=== PATIENT | female | born 1975 | race Caucasian/White ===

== ENCOUNTER 2018-05-12 10:54 | Day surgery (SDC) | payer BC ==
--- NOTE | 2018-05-12 10:08 | HP ---
DATE OF SURGERY: 05/12/2018 ANTICIPATED PROCEDURE: Hemorrhoidectomy. HISTORY OF PRESENT ILLNESS: The patient has symptomatic external hemorrhoids. PAST MEDICAL HISTORY: ALLERGIES: NONE. MEDICATIONS: Norvasc. PAST SURGICAL HISTORY: Knee surgery. section. Cerclage. Two hernias. SOCIAL HISTORY: Negative. FAMILY HISTORY: Negative. REVIEW OF SYSTEMS: CVS: Controlled hypertension. Pulmonary: Negative. GI: Negative. : Negative. PHYSICAL EXAMINATION: VITAL SIGNS: Normal. CHEST: Clear. COR: Regular. IMPRESSION: Anus large hemorrhoids. PLAN: External hemorrhoidectomy.
[~2018-05-12 10:54] MED LIST: Lactated Ringers 1,000 ML IV ONE; Lactated Ringers 1,000 ML IV SCH; MEFOXIN 2 GM PREMIX** 2 GM/50 ML ML IV ONE; Sensorcaine 0.25% 10 ML ONE
[2018-05-12] MEDS ORDERED: Quelicin Fliptop 200 MG/10 ML IV ONE (10:55)
[2018-05-12] MEDS ORDERED: SUBLIMAZE 100 MCG/2 ML IV ONE (10:55)
[2018-05-12] MEDS ORDERED: DIPRIVAN 200 MG/20 ML IV ONE (10:55)
[2018-05-12] MEDS ORDERED: ROBINUL IV ONE (10:55)
[2018-05-12] MEDS ORDERED: SUBLIMAZE 250 MCG/5 ML IV ONE (10:55)
[2018-05-12] MEDS ORDERED: EXPAREL 266 MG/20 ML VIAL IJ ONE (10:55)
[2018-05-12] MEDS ORDERED: Versed 2 MG/2 ML Injection ONE (11:26)
[2018-05-12] MEDS ORDERED: Versed 2 MG/2 ML Injection IV ONE (11:28)
[2018-05-12] MEDS ORDERED: ANUSOL-HC 2.5% CREAM 30 GM ONE (12:48)
[2018-05-12 15:26] VITALS: BP 118/60; PULSE 95; O2SAT 93
--- NOTE | 2018-05-13 11:07 | OP ---
SURGERY DATE/TIME: 05/12/2018 1206 PREOPERATIVE DIAGNOSIS: Hemorrhoids. POSTOPERATIVE DIAGNOSIS: One massive external hemorrhoid, two smaller hemorrhoids. PROCEDURE: Hemorrhoidectomy x3 external. SURGEON: Joss Beaver M.D. ANESTHESIA: General. INDICATION: The patient has massive external hemorrhoid and some smaller hemorrhoids. DESCRIPTION OF PROCEDURE: She was taken to surgery. General anesthetic. Routine prep and drape. Total of three external hemorrhoids were taken, were clamped. The mucosa was clamped, amputated closed with running suture #2-0 chromic catgut. Hemostasis satisfactory. Aperture satisfactory. The patient tolerated the procedure satisfactorily.
== END 2018-05-12 14:50 | disposition home or self-care (01) ==
LOC: SDC 10:54
PROVIDERS: ATTEND Surgery
DX: K64.4 Residual hemorrhoidal skin tags (principal); I10 Essential (primary) hypertension
CPT/HCPCS: 84703; 94250; J0330; J0694; J2250; J2704; J3010; A9270-GY

== ENCOUNTER 2020-05-04 22:54 | Inpatient (IN) | payer BC ==
[2020-05-04] MEDS ORDERED: MORPHINE SULFATE 4 MG INJ IV ONE (23:35)
[2020-05-04 23:37] LABS: Absolute Neutrophil Ct (ANC) 11.83 (1.4-6.9); BASOPHIL % 0.2 % (0.0-0.4); Basophil (Absolute #) 0.03 (0-0.4); Eosinophil % 2.1 % (0.00-5.0); Eosinophil (Absolute #) 0.32 (0-0.5); Hematocrit 51.1 % (35-47); Hemoglobin 17.2 gm/dl (12.0-16.0); Lymphocytes % 13.4 % (24.0-44.0); Mean Cell Volume 95.3 fl (78-100); Mean Corpuscular Hemoglobin 32.1 pg (26-32); Mean Corpuscular Hgb Concent. 33.7 g/dl (32-36); Mean Platelet Volume 9.2 fl (7.5-11.0); Monocyte (Absolute #) 0.74 (0.0-1.3); Neutrophil % 79.3 % (36.0-66.0); Platelet Count 289 K/mm3 (150-450); Red Blood Count 5.36 M/mm3 (4.1-5.4); Red Cell Distribution Width 14.9 % (11.5-14.0); White Blood Count 14.9 K/mm3 (4.0-10.5)
[2020-05-04] MEDS ORDERED: Sodium Chloride 0.9% 1000 ML 1,000 ML IV STA (23:37)
[2020-05-04] MEDS ORDERED: Zofran 4 MG/2 ML VIAL IV ONE (23:37)
[2020-05-04] MEDS ORDERED: Zofran 4 MG/2 ML VIAL ONE (23:39)
[2020-05-04] MEDS ORDERED: MORPHINE SULFATE 4 MG INJ ONE (23:39)
[2020-05-04] MEDS ORDERED: Sodium Chloride 0.9% 1000 ML 1,000 ML ONE (23:39)
[2020-05-04 23:42] LABS: ALBUMIN 4.4 g/dL (3.5-5.0); ALKALINE PHOSPHATASE 86 U/L (38-126); ANION GAP 9.9 MEQ/L (5-15); BLOOD UREA NITROGEN 4 mg/dL (7-17); CHLORIDE 102 mmol/L (98-107); Calcium 9.4 mg/dL (8.4-10.2); Carbon Dioxide 28 mmol/L (22-30); Creatinine 1 0.54 mg/dL (0.52-1.04); EST GLOMERULAR FILTRATION RATE > 60.0 ML/MIN; Glucose 149 mg/dL (74-106); Potassium 3.5 mmol/L (3.5-5.1); SGOT/AST 21 U/L (14-36); SGPT/ALT 22 U/L (0-35); SODIUM 137 mmol/L (137-145); Total Protein 8.4 g/dL (6.3-8.2)
[2020-05-05] LABS: Appearance SLIGHTLY CLOUDY (CLEAR); Bilirubin NEGATIVE (NEGATIVE); Blood SMALL Ery/ul (0-5); Epithelial Cells RARE /HPF (FEW); Glucose NEGATIVE (NEGATIVE); Ketones NEGATIVE (NEGATIVE); Leukocyte Esterase NEGATIVE (NEGATIVE); Mucus SLIGHT /HPF (NEGATIVE); Nitrite NEGATIVE (NEGATIVE); Protein,Urine Dip 100 (Negative); Specific Gravity 1.013 (1.005-1.025); Urobilinogen NEGATIVE mg/dL (0-1)
--- NOTE | 2020-05-05 00:04 | ERPHSYRPT ---
- History of Present Illness Time Seen by Provider: 05/04/20 23:03 Historian: patient Exam Limitations: no limitations Patient Subjective Stated Complaint: pt states that today at noon she began to have belly pain, pt states that she had a small amout of diarrhea and vomited once, pt states that her belly is cramping, pt states that her blood pressure is also elevated and that she is having hot flashes Triage Nursing Assessment: pt came into the er via wheelchair, pt is axo x4, c/o abd pain and hypertension, states 10/10 pain to upper abd, abd is soft, obese, tender to midline upper abd with palpation, hypoactive bowel sounds in all quads, N/V/D, pt holding abd and yelling out in pain, hypertensive 206/124, denies chest pain, clear lung sounds in all lobes, clear heart tones Physician History: 44 years old female with history of hypertension presented in the ER with chief complaint of epigastric and right upper quadrant pain sudden onset around noon with progressively worsening currently having 10/10 intensity, sharp in nature, without any significant aggravating or relieving factors, associated with nausea and one episode of nonprojectile, nonbilious vomiting without hematemesis. Denies any history of similar pain in the past. Denies fever chills cough. No diarrhea or constipation. Patient blood pressure is in 200s on presentation which she reports she has whitecoat hypertension but denies any chest pain palpitations or shortness of breath. Timing/Duration: today, gradual onset, worse Activities at Onset: rest Quality: sharpness Abdominal Pain Onset Location: RUQ, epigastric Pain Radiation: no radiation Severity of Pain-Max: severe Severity of Pain-Current: severe Modifying Factors: Improves With: nothing Associated Symptoms: nausea, vomiting Previous symptoms: no prior history Allergies/Adverse Reactions: fluoxetine HCl [From Prozac] Allergy (Intermediate, Verified 05/04/20 23:03) Hives hives Home Medications: Alprazolam 1 mg [Xanax 1 mg] 0.5 mg PO BID 08/14/14 [History] Amlodipine Besylate 10 mg [Norvasc 10 MG] 10 mg PO DAILY 11/02/17 [History] Paroxetine HCl 20 mg [Paxil 20 MG] 20 mg PO DAILY 11/02/17 [History] Carvedilol 3.125 mg [Coreg 3.125 MG] 3.125 mg PO DAILY 05/05/20 [History] Ergocalciferol (Vitamin D2) [Vitamin D2] 1 cap PO WEEKLY 05/05/20 [History] Ergocalciferol (Vitamin D2) [Vitamin D] 1 cap PO WEEKLY 05/05/20 [History] Naloxone HCl [Narcan] 1 spray .ROUTE PRN 05/05/20 [History] Semaglutide [Ozempic] 2 ml SQ WEEKLY 05/05/20 [History] Tramadol HCl 50 mg [Ultram 50 mg] 50 mg PO Q4HPRN PRN 05/05/20 [History] Hx Tetanus, Diphtheria Vaccination/Date Given: Yes Hx Influenza Vaccination/Date Given: No Hx Pneumococcal Vaccination/Date Given: No Travel Risk - International Travel Have you traveled outside of the country in past 3 weeks: No - Coronavirus Screening Are you exhibiting any of the following symptoms?: Yes Symptoms: Vomiting/Diarrhea Close contact with a COVID-19 positive Pt in past 14-21 Days: No - Review of Systems Constitutional: No Symptoms Eyes: No Symptoms Ears, Nose, & Throat: No Symptoms Respiratory: No Symptoms Cardiac: No Symptoms Abdominal/Gastrointestinal: Abdominal Pain, Nausea, Vomiting Genitourinary Symptoms: No Symptoms Musculoskeletal: No Symptoms Skin: No Symptoms Neurological: No Symptoms Psychological: No Symptoms Endocrine: No Symptoms Hematologic/Lymphatic: No Symptoms Immunological/Allergic: No Symptoms - Past Medical History Pertinent Past Medical History: Yes Neurological History: No Pertinent History ENT History: No Pertinent History Cardiac History: No Pertinent History, Hypertension Respiratory History: No Pertinent History Endocrine Medical History: No Pertinent History Musculoskeletal History: Degenerative Disk Disease, Osteoarthritis GI Medical History: Hemorrhoids, Hernia History: No Pertinent History Psycho-Social History: Anxiety, Depression, Panic Disorder Female Reproductive Disorders: No Pertinent History - Past Surgical History Past Surgical History: Yes Neuro Surgical History: No Pertinent History Cardiac: No Pertinent History Respiratory: No Pertinent History Gastrointestinal: Hernia Repair Genitourinary: No Pertinent History Musculoskeletal: Orthopedic Surgery Female Surgical History: Section Other Surgical History: D &C 2007, cervical cerclage 2009, right knee(four surgeries),hernia surgery x two - Social History Smoking Status: Light tobacco smoker How long have you smoked: 16 yrs Exposure to second hand smoke: No Drug Use: none Patient Lives Alone: No Significant Family History: no pertinent family hx - Female History Hx Now: No - Nursing Vital Signs Nursing Vital Signs: Initial Vital Signs Temperature 97.5 F 05/04/20 23:08 Pulse Rate 89 05/04/20 23:08 Respiratory Rate 16 05/04/20 23:08 Blood Pressure 206/124 05/04/20 23:08 O2 Sat by Pulse Oximetry 96 05/04/20 23:08 Pain Scale Pain Intensity 6 - Physical Exam General Appearance: no apparent distress Eye Exam: PERRL/EOMI, eyes nml inspection Ears, Nose, Throat Exam: normal ENT inspection, pharynx normal Neck Exam: normal inspection, non-tender, supple, full range of motion Respiratory Exam: normal breath sounds, lungs clear Cardiovascular Exam: regular rate/rhythm, normal heart sounds Gastrointestinal/Abdomen Exam: soft, tenderness (Right upper quadrant), guarding, other (Hypoactive bowel sounds) Back Exam: normal inspection, normal range of motion, No CVA tenderness Extremity Exam: normal inspection, normal range of motion Neurologic Exam: alert, oriented x 3, cooperative Skin Exam: normal color SpO2 Interpretation: normal SpO2: 96 O2 Delivery: Room Air - Course Nursing assessment & vital signs reviewed: Yes Ordered Tests: Active Orders 24 hr Category Date Time Status ABDOMEN AND PELVIS W CONTRAST [CT] Stat Exams 05/05/20 23:34 Taken CBC W DIFF Stat Lab 05/04/20 23:33 Completed CMP Stat Lab 05/04/20 23:33 Completed CULTURE,URINE Stat Lab 05/04/20 23:40 Received HCG,QUALITATIVE URINE Stat Lab 05/04/20 23:40 Completed LIPASE Stat Lab 05/04/20 23:33 Completed TROPONIN Q3H Lab 05/04/20 00:06 Completed UA W/RFX UR CULTURE Stat Lab 05/04/20 23:40 Completed Transfer Order Routine Transfer 05/05/20 Ordered Medication Summary Discontinued Medications Generic Name Dose Route Start Last Admin Trade Name Freq PRN Reason Stop Dose Admin Sodium Chloride 1,000 mls @ 999 mls/hr 05/04/20 23:37 05/05/20 00:53 Sodium Chloride 0.9% 1000 Ml IV 05/05/20 00:37 Infused .Q1H1M STA Infusion Sodium Chloride Confirm 05/04/20 23:39 Sodium Chloride 0.9% 1000 Ml Administered 05/04/20 23:40 Dose 1,000 mls @ ud .ROUTE .STK-MED ONE Morphine Sulfate 4 mg 05/04/20 23:35 05/04/20 23:40 Morphine Sulfate 4 Mg Inj IV 05/04/20 23:36 4 mg STAT ONE Administration Morphine Sulfate Confirm 05/04/20 23:39 Morphine Sulfate 4 Mg Inj Administered 05/04/20 23:40 Dose 4 mg .ROUTE .STK-MED ONE Ondansetron HCl 4 mg 05/04/20 23:37 05/04/20 23:40 Zofran 4 Mg/2 Ml Vial IV 05/04/20 23:38 4 mg STAT ONE Administration Ondansetron HCl Confirm 05/04/20 23:39 Zofran 4 Mg/2 Ml Vial Administered 05/04/20 23:40 Dose 4 mg .ROUTE .STK-MED ONE Lab/Rad Data: Laboratory Result Diagrams 05/04/20 23:33 05/04/20 23:33 Laboratory Results 05/04/20 05/04/20 05/04/20 Range/Units 23:40 23:40 23:33 WBC (4.0-10.5) K/mm3 RBC (4.1-5.4) M/mm3 Hgb (12.0-16.0) gm/dl Hct (35-47) % MCV (78-100) fl MCH (26-32) pg MCHC (32-36) g/dl RDW (11.5-14.0) % Plt Count (150-450) K/mm3 MPV (7.5-11.0) fl Gran % (36.0-66.0) % Eos # (Auto) (0-0.5) Absolute Lymphs (auto) (1.0-4.6) Absolute Monos (auto) (0.0-1.3) Lymphocytes % (24.0-44.0) % Monocytes % (0.0-12.0) % Eosinophils % (0.00-5.0) % Basophils % (0.0-0.4) % Absolute Granulocytes (1.4-6.9) Basophils # (0-0.4) Sodium (137-145) mmol/L Potassium (3.5-5.1) mmol/L Chloride (98-107) mmol/L Carbon Dioxide (22-30) mmol/L Anion Gap (5-15) MEQ/L BUN (7-17) mg/dL Creatinine (0.52-1.04) mg/dL Estimated GFR ML/MIN Glucose (74-106) mg/dL Calcium (8.4-10.2) mg/dL Total Bilirubin (0.2-1.3) mg/dL AST (14-36) U/L ALT (0-35) U/L Alkaline Phosphatase (38-126) U/L Troponin I (0.000-0.034) ng/mL Serum Total Protein (6.3-8.2) g/dL Albumin (3.5-5.0) g/dL Lipase 28 (23-300) U/L Urine Color YELLOW (YELLOW) Urine Appearance SLIGHTLY CLOUDY (CLEAR) Urine pH 6.0 (5-6) Ur Specific Marion 1.013 (1.005-1.025) Urine Protein 100 (Negative) Urine Ketones NEGATIVE (NEGATIVE) Urine Blood SMALL (0-5) Omkar/ul Urine Nitrite NEGATIVE (NEGATIVE) Urine Bilirubin NEGATIVE (NEGATIVE) Urine Urobilinogen NEGATIVE (0-1) mg/dL Ur Leukocyte Esterase NEGATIVE (NEGATIVE) Urine WBC (Auto) 3-5 (0-5) /HPF Urine RBC (Auto) 3-5 (0-2) /HPF U Hyaline Cast (Auto) 3-5 (0-2) /LPF U Epithel Cells (Auto) RARE (FEW) /HPF Urine Bacteria (Auto) NONE (NEGATIVE) /HPF Unidentified Crystals 2-5 (NEGATIVE) /HPF Urine Mucus (Auto) SLIGHT (NEGATIVE) /HPF Urine Culture Reflexed YES (NO) Urine Glucose NEGATIVE (NEGATIVE) mg/dL Urine HCG, Qual NEGATIVE (Negative) 05/04/20 05/04/20 05/04/20 Range/Units 23:33 23:33 00:06 WBC 14.9 H (4.0-10.5) K/mm3 RBC 5.36 (4.1-5.4) M/mm3 Hgb 17.2 H (12.0-16.0) gm/dl Hct 51.1 H (35-47) % MCV 95.3 (78-100) fl MCH 32.1 H (26-32) pg MCHC 33.7 (32-36) g/dl RDW 14.9 H (11.5-14.0) % Plt Count 289 (150-450) K/mm3 MPV 9.2 (7.5-11.0) fl Gran % 79.3 H (36.0-66.0) % Eos # (Auto) 0.32 (0-0.5) Absolute Lymphs (auto) 2.00 (1.0-4.6) Absolute Monos (auto) 0.74 (0.0-1.3) Lymphocytes % 13.4 L (24.0-44.0) % Monocytes % 5.0 (0.0-12.0) % Eosinophils % 2.1 (0.00-5.0) % Basophils % 0.2 (0.0-0.4) % Absolute Granulocytes 11.83 H (1.4-6.9) Basophils # 0.03 (0-0.4) Sodium 137 (137-145) mmol/L Potassium 3.5 (3.5-5.1) mmol/L Chloride 102 (98-107) mmol/L Carbon Dioxide 28 (22-30) mmol/L Anion Gap 9.9 (5-15) MEQ/L BUN 4 L (7-17) mg/dL Creatinine 0.54 (0.52-1.04) mg/dL Estimated GFR > 60.0 ML/MIN Glucose 149 H (74-106) mg/dL Calcium 9.4 (8.4-10.2) mg/dL Total Bilirubin 0.60 (0.2-1.3) mg/dL AST 21 (14-36) U/L ALT 22 (0-35) U/L Alkaline Phosphatase 86 (38-126) U/L Troponin I < 0.012 (0.000-0.034) ng/mL Serum Total Protein 8.4 H (6.3-8.2) g/dL Albumin 4.4 (3.5-5.0) g/dL Lipase (23-300) U/L Urine Color (YELLOW) Urine Appearance (CLEAR) Urine pH (5-6) Ur Specific Marion (1.005-1.025) Urine Protein (Negative) Urine Ketones (NEGATIVE) Urine Blood (0-5) Omkar/ul Urine Nitrite (NEGATIVE) Urine Bilirubin (NEGATIVE) Urine Urobilinogen (0-1) mg/dL Ur Leukocyte Esterase (NEGATIVE) Urine WBC (Auto) (0-5) /HPF Urine RBC (Auto) (0-2) /HPF U Hyaline Cast (Auto) (0-2) /LPF U Epithel Cells (Auto) (FEW) /HPF Urine Bacteria (Auto) (NEGATIVE) /HPF Unidentified Crystals (NEGATIVE) /HPF Urine Mucus (Auto) (NEGATIVE) /HPF Urine Culture Reflexed (NO) Urine Glucose (NEGATIVE) mg/dL Urine HCG, Qual (Negative) - Progress Progress: improved, pain not gone completely, re-examined Progress Note: 05/05/20 00:59 44 years old is evaluated for upper abdominal pain with nausea and vomiting. She is given morphine for symptomatic relief along with Zofran and fluid bolus. She has a white count of 14, normal lipase and liver enzymes. I have obtained CT with contrast which showed small bowel obstruction with got a point in the left lower quadrant. Discussed with Dr. Velasco general surgery higher education administrator, recommended NG tube, n.p.o., conservative management initially. Discussed with Dr. Brock and patient is admitted in consultation with general surgery. Plan discussed with patient who understand and agrees with it. Discussed with : Anibal Sosa Counseled pt/family regarding: lab results, diagnosis, rad results - Departure Departure Disposition: Observation Clinical Impression: Small bowel obstruction Condition: Stable Critical Care Time: No Referrals: FELTON CALDERÓN [Primary Care Provider] -
[2020-05-05] MEDS ORDERED: Ativan 2 MG/1 ML VIAL IV ONE (01:29)
[2020-05-05] MEDS ORDERED: Ativan 2 MG/1 ML VIAL ONE (01:29)
[2020-05-05] MEDS ORDERED: MORPHINE SULFATE 4 MG INJ IV ONE ×2 (01:33→05:02)
[2020-05-05] MEDS ORDERED: MORPHINE SULFATE 4 MG INJ ONE (01:34)
[2020-05-05] MEDS ORDERED: MORPHINE SULFATE 2 MG INJ IV PRN (01:36)
[2020-05-05] MEDS ORDERED: APRESOLINE 20 MG/ML INJ IV ONE ×2 (02:02→06:25)
[2020-05-05] MEDS ORDERED: APRESOLINE 20 MG/ML INJ ONE (02:06)
[2020-05-05] MEDS ORDERED: Reglan 10 MG/2 ML IV ONE (02:28)
[2020-05-05] MEDS: Ativan 2 MG/1 ML VIAL IV PRN ×3 (03:22→21:47)
[2020-05-05] MEDS: Sodium Chloride 0.9% 1000 ML 1,000 ML IV SCH ×2 (03:22→20:20)
[2020-05-05] MEDS ORDERED: Compazine 10 MG/2 ML IV ONE (05:02)
[2020-05-05 06:34] LABS: Absolute Neutrophil Ct (ANC) 17.95 (1.4-6.9); BASOPHIL % 0.1 % (0.0-0.4); Basophil (Absolute #) 0.02 (0-0.4); Eosinophil % 0.2 % (0.00-5.0); Eosinophil (Absolute #) 0.03 (0-0.5); Hematocrit 53.6 % (35-47); Hemoglobin 18.2 gm/dl (12.0-16.0); Lymphocyte (Absolute #) 0.78 (1.0-4.6); Mean Cell Volume 94.9 fl (78-100); Mean Corpuscular Hemoglobin 32.2 pg (26-32); Mean Platelet Volume 9.2 fl (7.5-11.0); Monocyte (Absolute #) 0.82 (0.0-1.3); Monocytes % 4.2 % (0.0-12.0); Neutrophil % 91.5 % (36.0-66.0); Platelet Count 306 K/mm3 (150-450); Red Blood Count 5.65 M/mm3 (4.1-5.4); Red Cell Distribution Width 14.9 % (11.5-14.0); White Blood Count 19.6 K/mm3 (4.0-10.5)
[2020-05-05 06:41] LABS: ALBUMIN 4.3 g/dL (3.5-5.0); ALKALINE PHOSPHATASE 88 U/L (38-126); BLOOD UREA NITROGEN 6 mg/dL (7-17); CHLORIDE 104 mmol/L (98-107); Calcium 9.3 mg/dL (8.4-10.2); Carbon Dioxide 25 mmol/L (22-30); Creatinine 1 0.41 mg/dL (0.52-1.04); EST GLOMERULAR FILTRATION RATE > 60.0 ML/MIN; Glucose 183 mg/dL (74-106); Potassium 3.5 mmol/L (3.5-5.1); SGOT/AST 20 U/L (14-36); SGPT/ALT 21 U/L (0-35); SODIUM 136 mmol/L (137-145); Total Protein 8.2 g/dL (6.3-8.2)
[2020-05-05] MEDS: Morphine PCA 1 MG/ML 30 ML IV PRN (07:54)
--- NOTE | 2020-05-05 08:01 | XRAY ---
Indication: Abdomen pain and emesis. Elevated WBC. Multiple contiguous axial images obtained through the abdomen and pelvis using 80 cc Isovue 370 contrast only. Comparison: August 14, 2014. Lung bases demonstrates minimal atelectasis/scarring. No infiltrate or effusion. Heart is not enlarged. Stomach is mildly fluid distended with tiny intraluminal radiopacities presumed ingested medication. Small bowel loops are again mildly fluid distended up to 3.6 cm with fluid leveling to the level of the left lower quadrant. Adjacent anterior abdominal wall demonstrates postsurgical changes. More distal ileum appears decompressed with little bowel gas in the colon favoring partial small bowel obstruction. Small free fluid in the pelvis. No walled off fluid collection or free air. Stable small left hepatic cyst and small left adrenal adenoma. Remaining liver, gallbladder, pancreas, spleen, right adrenal gland, kidneys, ureters, bladder, and uterus appear unremarkable. Mild aortoiliac calcifications. No AAA or pathological retroperitoneal lymphadenopathy. Osseous structures intact again with mild degenerative changes throughout the thoracolumbar spine. Impression: 1. Again CT features favoring partial distal small bowel obstruction with transition point left lower quadrant. Small pelvic free fluid presumed reactive. 2. Stable hepatic cyst and left adrenal adenoma. Comment: Preliminary interpretation was made by [facility]. No critical discrepancy.
--- NOTE | 2020-05-05 08:03 | XRAY ---
Indication: NG tube placement. Comparison: July 27, 2015. Portable chest demonstrates new NG tube tip left upper quadrant abdomen presumed in the stomach. Lungs are underinflated accentuating cardiopulmonary structures without acute cardiopulmonary abnormalities. Bony thorax intact.
[2020-05-05] MEDS: PROTONIX 40 MG IV IV SCH (09:51)
[2020-05-05] MEDS ORDERED: APRESOLINE 20 MG/ML INJ IV PRN (09:59)
[2020-05-05] MEDS ORDERED: NICODERM CQ 14 MG TOP SCH (10:00)
[2020-05-05] MEDS: Lactated Ringers 1,000 ML IV SCH ×3 (11:04→22:06)
--- NOTE | 2020-05-05 11:33 | PCM.HP ---
History of Present Illness - Chief Complaint Chief Complaint: SMALL BOWEL OBSTRUCTION History of Present Illness: is a 44 year old female who reported to the ER yesterday with acute onset of epigastric pain with vomiting, pain was severe, no known fever. no injury or inciting event, hx of prior abdominal hernia repair x 2, no other abdominal surgery. bp has been very high but patient reports this is normal for her in a healthcare setting, states "it is my white coat syndrome". - Review of Systems Constitutional: No Symptoms Respiratory: No Cough, No Short Of Breath Cardiac: No Chest Pain, No Edema, No Syncope Abdominal/Gastrointestinal: Abdominal Pain, Nausea, Vomiting Genitourinary Symptoms: No Dysuria Skin: No Rash Neurological: No Dizziness, No Focal Weakness, No Sensory Changes All Other Systems: Reviewed and Negative Medications & Allergies Home Medications: Home Medication List Alprazolam 1 mg [Xanax 1 mg] 0.5 mg PO BID 08/14/14 [History Confirmed 05/05/20] Amlodipine Besylate 10 mg [Norvasc 10 MG] 10 mg PO DAILY 11/02/17 [History Confirmed 05/05/20] Paroxetine HCl 20 mg [Paxil 20 MG] 40 mg PO DAILY 11/02/17 [History Confirmed 05/05/20] Carvedilol 3.125 mg [Coreg 3.125 MG] 3.125 mg PO BID 05/05/20 [History Confirmed 05/05/20] Ergocalciferol (Vitamin D2) [Vitamin D] 1 cap PO WEEKLY 05/05/20 [History Confirmed 05/05/20] Hydrocodone/Acetaminophen [Falls 5-325 Tablet] 1 each PO Q6H PRN MDD 4 05/05/20 [History Confirmed 05/05/20] Naloxone HCl [Narcan] 1 spray .ROUTE UD PRN 05/05/20 [History Confirmed 05/05/20] Semaglutide [Ozempic] 2 ml SQ WEEKLY 05/05/20 [History Confirmed 05/05/20] Tramadol HCl 50 mg [Ultram 50 mg] 50 mg PO Q4HPRN PRN 05/05/20 [History Confirmed 05/05/20] Allergies/Adverse Reactions: Allergies Allergy/AdvReac Type Severity Reaction Status Date / Time fluoxetine HCl [From Prozac] Allergy Intermediate Hives Verified 05/04/20 23:03 - Past Medical History Past Medical History: Yes Neurological History: No Pertinent History ENT History: No Pertinent History Cardiac History: No Pertinent History, Hypertension Respiratory History: No Pertinent History Endocrine Medical History: No Pertinent History Musculoskelatal History: Degenerative Disk Disease, Osteoarthritis GI Medical History: Hemorrhoids, Hernia History: No Pertinent History Pyscho-Social History: Anxiety, Depression, Panic Disorder Reproductive Disorders: No Pertinent History - Female History Hx Last Menstrual Period: 04/28/20 Are you now?: No - Past Surgical History Past Surgical History: Yes Neuro Surgical History: No Pertinent History Cardiac History: No Pertinent History Respiratory Surgery: No Pertinent History GI Surgical History: Hernia Repair Genitourinary Surgical Hx: No Pertinent History Musculskeletal Surgical Hx: Orthopedic Surgery Female Surgical History: Section Other Surgical History: D &C 2007, cervical cerclage 2009, right knee(four surgeries),hernia surgery x two - Social History Smoking Status: Current every day smoker How long have you smoked: 20 Exposure to second hand smoke: No Alcohol: None Drug Use: none Significant Family History: no pertinent family hx - Physical Exam Vital Signs: Vital Signs - 24 hr Temp Pulse Resp BP Pulse Ox 05/05/20 09:55 109 H 18 134/85 92 L 05/05/20 08:11 93 L 05/05/20 07:54 92 L 05/05/20 07:27 113 H 184/86 05/05/20 06:10 106 H 217/100 05/05/20 04:30 99 H 205/100 05/05/20 02:42 97.9 F 104 H 22 225/109 93 L 05/05/20 02:07 92 H 14 205/114 98 05/05/20 01:02 96 05/05/20 00:23 94 H 174/94 97 05/04/20 23:08 97.5 F 89 16 206/124 96 Oxygen-Last 24 hours Oxygen Flowrate (L/min)-RT 2 General Appearance: mild distress, obese Neurologic Exam: alert, oriented x 3, cooperative Respiratory Exam: normal breath sounds, lungs clear, No respiratory distress Cardiovascular Exam: regular rate/rhythm, normal heart sounds, normal peripheral pulses Gastrointestinal/Abdomen Exam: soft, tenderness (epigastrim) Extremity Exam: normal inspection, normal range of motion, pelvis stable Skin Exam: normal color, warm, dry, No rash Results - Labs Lab/Micro Results: Lab Results-Last 24 Hours 05/04/20 05/04/20 05/04/20 Range/Units 00:06 23:33 23:33 WBC 14.9 H (4.0-10.5) K/mm3 RBC 5.36 (4.1-5.4) M/mm3 Hgb 17.2 H (12.0-16.0) gm/dl Hct 51.1 H (35-47) % MCV 95.3 (78-100) fl MCH 32.1 H (26-32) pg MCHC 33.7 (32-36) g/dl RDW 14.9 H (11.5-14.0) % Plt Count 289 (150-450) K/mm3 MPV 9.2 (7.5-11.0) fl Gran % 79.3 H (36.0-66.0) % Eos # (Auto) 0.32 (0-0.5) Absolute Lymphs (auto) 2.00 (1.0-4.6) Absolute Monos (auto) 0.74 (0.0-1.3) Lymphocytes % 13.4 L (24.0-44.0) % Monocytes % 5.0 (0.0-12.0) % Eosinophils % 2.1 (0.00-5.0) % Basophils % 0.2 (0.0-0.4) % Absolute Granulocytes 11.83 H (1.4-6.9) Basophils # 0.03 (0-0.4) Sodium 137 (137-145) mmol/L Potassium 3.5 (3.5-5.1) mmol/L Chloride 102 (98-107) mmol/L Carbon Dioxide 28 (22-30) mmol/L Anion Gap 9.9 (5-15) MEQ/L BUN 4 L (7-17) mg/dL Creatinine 0.54 (0.52-1.04) mg/dL Estimated GFR > 60.0 ML/MIN Glucose 149 H (74-106) mg/dL Calcium 9.4 (8.4-10.2) mg/dL Total Bilirubin 0.60 (0.2-1.3) mg/dL AST 21 (14-36) U/L ALT 22 (0-35) U/L Alkaline Phosphatase 86 (38-126) U/L Troponin I < 0.012 (0.000-0.034) ng/mL Serum Total Protein 8.4 H (6.3-8.2) g/dL Albumin 4.4 (3.5-5.0) g/dL Lipase (23-300) U/L Urine Color (YELLOW) Urine Appearance (CLEAR) Urine pH (5-6) Ur Specific [place] (1.005-1.025) Urine Protein (Negative) Urine Ketones (NEGATIVE) Urine Blood (0-5) Omkar/ul Urine Nitrite (NEGATIVE) Urine Bilirubin (NEGATIVE) Urine Urobilinogen (0-1) mg/dL Ur Leukocyte Esterase (NEGATIVE) Urine WBC (Auto) (0-5) /HPF Urine RBC (Auto) (0-2) /HPF U Hyaline Cast (Auto) (0-2) /LPF U Epithel Cells (Auto) (FEW) /HPF Urine Bacteria (Auto) (NEGATIVE) /HPF Unidentified Crystals (NEGATIVE) /HPF Urine Mucus (Auto) (NEGATIVE) /HPF Urine Culture Reflexed (NO) Urine Glucose (NEGATIVE) mg/dL Urine HCG, Qual (Negative) 05/04/20 05/04/20 05/04/20 Range/Units 23:33 23:40 23:40 WBC (4.0-10.5) K/mm3 RBC (4.1-5.4) M/mm3 Hgb (12.0-16.0) gm/dl Hct (35-47) % MCV (78-100) fl MCH (26-32) pg MCHC (32-36) g/dl RDW (11.5-14.0) % Plt Count (150-450) K/mm3 MPV (7.5-11.0) fl Gran % (36.0-66.0) % Eos # (Auto) (0-0.5) Absolute Lymphs (auto) (1.0-4.6) Absolute Monos (auto) (0.0-1.3) Lymphocytes % (24.0-44.0) % Monocytes % (0.0-12.0) % Eosinophils % (0.00-5.0) % Basophils % (0.0-0.4) % Absolute Granulocytes (1.4-6.9) Basophils # (0-0.4) Sodium (137-145) mmol/L Potassium (3.5-5.1) mmol/L Chloride (98-107) mmol/L Carbon Dioxide (22-30) mmol/L Anion Gap (5-15) MEQ/L BUN (7-17) mg/dL Creatinine (0.52-1.04) mg/dL Estimated GFR ML/MIN Glucose (74-106) mg/dL Calcium (8.4-10.2) mg/dL Total Bilirubin (0.2-1.3) mg/dL AST (14-36) U/L ALT (0-35) U/L Alkaline Phosphatase (38-126) U/L Troponin I (0.000-0.034) ng/mL Serum Total Protein (6.3-8.2) g/dL Albumin (3.5-5.0) g/dL Lipase 28 (23-300) U/L Urine Color YELLOW (YELLOW) Urine Appearance SLIGHTLY CLOUDY (CLEAR) Urine pH 6.0 (5-6) Ur Specific [place] 1.013 (1.005-1.025) Urine Protein 100 (Negative) Urine Ketones NEGATIVE (NEGATIVE) Urine Blood SMALL (0-5) Omkar/ul Urine Nitrite NEGATIVE (NEGATIVE) Urine Bilirubin NEGATIVE (NEGATIVE) Urine Urobilinogen NEGATIVE (0-1) mg/dL Ur Leukocyte Esterase NEGATIVE (NEGATIVE) Urine WBC (Auto) 3-5 (0-5) /HPF Urine RBC (Auto) 3-5 (0-2) /HPF U Hyaline Cast (Auto) 3-5 (0-2) /LPF U Epithel Cells (Auto) RARE (FEW) /HPF Urine Bacteria (Auto) NONE (NEGATIVE) /HPF Unidentified Crystals 2-5 (NEGATIVE) /HPF Urine Mucus (Auto) SLIGHT (NEGATIVE) /HPF Urine Culture Reflexed YES (NO) Urine Glucose NEGATIVE (NEGATIVE) mg/dL Urine HCG, Qual NEGATIVE (Negative) 05/05/20 05/05/20 Range/Units 05:45 05:45 WBC 19.6 H (4.0-10.5) K/mm3 RBC 5.65 H (4.1-5.4) M/mm3 Hgb 18.2 H (12.0-16.0) gm/dl Hct 53.6 H (35-47) % MCV 94.9 (78-100) fl MCH 32.2 H (26-32) pg MCHC 34.0 (32-36) g/dl RDW 14.9 H (11.5-14.0) % Plt Count 306 (150-450) K/mm3 MPV 9.2 (7.5-11.0) fl Gran % 91.5 H (36.0-66.0) % Eos # (Auto) 0.03 (0-0.5) Absolute Lymphs (auto) 0.78 L (1.0-4.6) Absolute Monos (auto) 0.82 (0.0-1.3) Lymphocytes % 4.0 L (24.0-44.0) % Monocytes % 4.2 (0.0-12.0) % Eosinophils % 0.2 (0.00-5.0) % Basophils % 0.1 (0.0-0.4) % Absolute Granulocytes 17.95 H (1.4-6.9) Basophils # 0.02 (0-0.4) Sodium 136 L (137-145) mmol/L Potassium 3.5 (3.5-5.1) mmol/L Chloride 104 (98-107) mmol/L Carbon Dioxide 25 (22-30) mmol/L Anion Gap 10.0 (5-15) MEQ/L BUN 6 L (7-17) mg/dL Creatinine 0.41 L (0.52-1.04) mg/dL Estimated GFR > 60.0 ML/MIN Glucose 183 H (74-106) mg/dL Calcium 9.3 (8.4-10.2) mg/dL Total Bilirubin 0.70 (0.2-1.3) mg/dL AST 20 (14-36) U/L ALT 21 (0-35) U/L Alkaline Phosphatase 88 (38-126) U/L Troponin I (0.000-0.034) ng/mL Serum Total Protein 8.2 (6.3-8.2) g/dL Albumin 4.3 (3.5-5.0) g/dL Lipase (23-300) U/L Urine Color (YELLOW) Urine Appearance (CLEAR) Urine pH (5-6) Ur Specific [place] (1.005-1.025) Urine Protein (Negative) Urine Ketones (NEGATIVE) Urine Blood (0-5) Omkar/ul Urine Nitrite (NEGATIVE) Urine Bilirubin (NEGATIVE) Urine Urobilinogen (0-1) mg/dL Ur Leukocyte Esterase (NEGATIVE) Urine WBC (Auto) (0-5) /HPF Urine RBC (Auto) (0-2) /HPF U Hyaline Cast (Auto) (0-2) /LPF U Epithel Cells (Auto) (FEW) /HPF Urine Bacteria (Auto) (NEGATIVE) /HPF Unidentified Crystals (NEGATIVE) /HPF Urine Mucus (Auto) (NEGATIVE) /HPF Urine Culture Reflexed (NO) Urine Glucose (NEGATIVE) mg/dL Urine HCG, Qual (Negative) - Radiology Impressions Radiology Exams & Impressions: Radiology Procedures Category Date Time Status ABDOMEN AND PELVIS W CONTRAST [CT] Stat Exams 05/05/20 23:34 Completed CHEST 1 VIEW (PORTABLE) Stat Exams 05/05/20 01:48 Completed CHEST 1 VIEW (PORTABLE) Stat Exams 05/05/20 10:50 Taken KUB Stat Exams 05/05/20 10:16 Taken - Other Procedures and Tests Respiratory Therapy 05/05/20 08:10 Oxygen Nasal Cannula 3 lpm Assessment/Plan (1) Small bowel obstruction Current Visit: Yes Status: Acute Assessment & Plan: NG present and xray confirms position, continue on LIS. surgery was consulted from ER and is aware of patient. at this time discussed NPO and decompress bowel and rest. pt upset she can't have ice chips or a drink, can use moist sponge for mouth but nothing po. currently on morphine behavioral health tech, anti-emetics Code(s): K56.609 - UNSP INTESTNL OBST, UNSP TO PARTIAL VERSUS COMPLETE OBST (2) Hypertensive urgency Current Visit: Yes Status: Acute Assessment & Plan: improved at this time Code(s): I16.0 - HYPERTENSIVE URGENCY
[2020-05-05] MEDS: FLAGYL 500 MG IVPB 500 MG/100 ML BAG IV SCH ×2 (14:21→21:55)
[2020-05-05] MEDS: Zosyn 3.375 GM Vial 3.375 GM in Sodium Chloride 100ML MINI-BAG PLUS 100 ML IV SCH ×2 (15:00→20:28)
[2020-05-05] MEDS ORDERED: Paxil 20 MG ONE (17:00)
[2020-05-05] MEDS ORDERED: NORVASC 5 MG PO ONE (17:00)
[2020-05-05] MEDS ORDERED: Paxil 20 MG PO ONE ×2 (17:00)
[2020-05-05] MEDS ORDERED: Coreg 3.125 MG PO ONE (17:00)
--- NOTE | 2020-05-05 19:12 | XRAY ---
Indication: NG tube placement. Comparison: One day earlier. Portable chest again demonstrates NG tube tip in the stomach with new bibasilar infiltrates versus atelectasis. Remaining heart and upper lungs unremarkable. Comment: Preliminary interpretation was made by [facility]. No critical discrepancy.
--- NOTE | 2020-05-05 19:16 | XRAY ---
Indication: NG tube placement. Comparison: Portable chest 1 day earlier. KUB demonstrates NG tube tip in antral portion of the stomach. Gastric radiopacities probably ingested medication/pills. There is paucity of bowel gas without focal bowel dilatation or free air. Urinary bladder contrast from CT one day earlier. Osseous structures intact with mild degenerative changes. Comment: Preliminary interpretation was made by [facility]. No critical discrepancy.
[2020-05-05] MEDS: Zofran 4 MG/2 ML VIAL IV PRN (21:47)
[2020-05-06] MEDS: Zosyn 3.375 GM Vial 3.375 GM in Sodium Chloride 100ML MINI-BAG PLUS 100 ML IV SCH ×4 (02:41→21:10)
[2020-05-06] MEDS: Ativan 2 MG/1 ML VIAL IV PRN ×2 (03:02→07:24)
[2020-05-06 05:35] LABS: Absolute Neutrophil Ct (ANC) 3.79 (1.4-6.9); BASOPHIL % 0.2 % (0.0-0.4); Basophil (Absolute #) 0.01 (0-0.4); Eosinophil % 1.1 % (0.00-5.0); Eosinophil (Absolute #) 0.07 (0-0.5); Hematocrit 46.8 % (35-47); Hemoglobin 15.3 gm/dl (12.0-16.0); Lymphocytes % 21.1 % (24.0-44.0); Mean Cell Volume 97.3 fl (78-100); Mean Corpuscular Hemoglobin 31.8 pg (26-32); Mean Corpuscular Hgb Concent. 32.7 g/dl (32-36); Mean Platelet Volume 9.5 fl (7.5-11.0); Monocyte (Absolute #) 0.99 (0.0-1.3); Monocytes % 16.1 % (0.0-12.0); Neutrophil % 61.5 % (36.0-66.0); Platelet Count 283 K/mm3 (150-450); Red Blood Count 4.81 M/mm3 (4.1-5.4); Red Cell Distribution Width 15.3 % (11.5-14.0); White Blood Count 6.2 K/mm3 (4.0-10.5)
[2020-05-06] MEDS: FLAGYL 500 MG IVPB 500 MG/100 ML BAG IV SCH ×3 (05:35→22:03)
[2020-05-06] MEDS: Morphine PCA 1 MG/ML 30 ML IV PRN (05:38)
[2020-05-06 05:50] LABS: ALBUMIN 3.5 g/dL (3.5-5.0); ALKALINE PHOSPHATASE 55 U/L (38-126); ANION GAP 8.7 MEQ/L (5-15); BLOOD UREA NITROGEN 8 mg/dL (7-17); CHLORIDE 105 mmol/L (98-107); Calcium 8.2 mg/dL (8.4-10.2); Carbon Dioxide 28 mmol/L (22-30); Creatinine 1 0.54 mg/dL (0.52-1.04); EST GLOMERULAR FILTRATION RATE > 60.0 ML/MIN; Glucose 131 mg/dL (74-106); MAGNESIUM 1.8 mg/dL (1.6-2.3); Potassium 3.3 mmol/L (3.5-5.1); SGOT/AST 16 U/L (14-36); SGPT/ALT 14 U/L (0-35); SODIUM 139 mmol/L (137-145)
[2020-05-06] MEDS ORDERED: Nicoderm CQ 21 MG TOP SCH (09:00)
--- NOTE | 2020-05-06 09:05 | PCM.NOTE ---
Date and Time: 05/06/20 0900 Subjective Assessment: Pt is feeling quite anxious. She is denying abd pain. She has semi-solid dark material in her NR tube. - Review of Systems Constitutional: No Fever Abdominal/Gastrointestinal: No Abdominal Pain Objective Exam General Appearance: mild distress, alert, obese Neurologic Exam: oriented x 3, cooperative Skin Exam: normal color, warm, dry, No rash Respiratory Exam: normal breath sounds, lungs clear, No crackles/rales, No rhonchi, No wheezing Cardiovascular Exam: regular rate/rhythm, normal heart sounds, No murmur Gastrointestinal/Abdomen Exam: soft, tenderness (generalized, mild), distention, No normal bowel sounds (hypoactive but present), No mass Extremity Exam: No pedal edema, No swelling Back Exam: normal inspection, No rash OBJECTIVE DATA Vital Signs: Vital Signs - 24 hr Temp Pulse Resp BP Pulse Ox 05/06/20 08:00 98.1 F 116 H 16 136/68 95 05/06/20 06:50 93 L 05/06/20 05:38 94 L 05/06/20 04:00 98.1 F 115 H 17 130/68 95 05/06/20 00:00 98.2 F 118 H 20 126/64 94 L 05/05/20 20:16 94 L 05/05/20 20:00 97.6 F 120 H 15 136/62 94 L 05/05/20 19:00 119 H 18 140/67 94 L 05/05/20 18:00 94 L 05/05/20 16:30 98.5 F 116 H 17 155/109 92 L 05/05/20 13:00 97.4 F 116 H 17 142/94 92 L 05/05/20 11:54 93 L 05/05/20 09:55 109 H 18 134/85 92 L Oxygen-Last 24 hours Oxygen Flowrate (L/min)-RT 2 Oxygen Flowrate (L/min)-RT 2 Pain Assessment - Last Documented Pain Intensity 5 Pain Scale Used 0-10 Pain Scale,FLACC Intake and Output: Intake & Output 05/03/20 05/04/20 05/05/20 05/06/20 11:59 11:59 11:59 11:59 Intake Total 2965 Output Total 100 1050 Balance -100 1915 Weight 126.6 kg 126.4 kg Lab Results: Lab Results-Last 24 Hours 05/05/20 05/05/20 05/06/20 Range/Units 05:00 13:24 05:13 WBC 6.2 (4.0-10.5) K/mm3 RBC 4.81 (4.1-5.4) M/mm3 Hgb 15.3 (12.0-16.0) gm/dl Hct 46.8 (35-47) % MCV 97.3 (78-100) fl MCH 31.8 (26-32) pg MCHC 32.7 (32-36) g/dl RDW 15.3 H (11.5-14.0) % Plt Count 283 (150-450) K/mm3 MPV 9.5 (7.5-11.0) fl Gran % 61.5 (36.0-66.0) % Eos # (Auto) 0.07 (0-0.5) Absolute Lymphs (auto) 1.30 (1.0-4.6) Absolute Monos (auto) 0.99 (0.0-1.3) Lymphocytes % 21.1 L (24.0-44.0) % Monocytes % 16.1 H (0.0-12.0) % Eosinophils % 1.1 (0.00-5.0) % Basophils % 0.2 (0.0-0.4) % Absolute Granulocytes 3.79 (1.4-6.9) Basophils # 0.01 (0-0.4) Sodium (137-145) mmol/L Potassium (3.5-5.1) mmol/L Chloride (98-107) mmol/L Carbon Dioxide (22-30) mmol/L Anion Gap (5-15) MEQ/L BUN (7-17) mg/dL Creatinine (0.52-1.04) mg/dL Estimated GFR ML/MIN Glucose (74-106) mg/dL POC Glucometer 504 H* (50 to 500) mg/dL Hemoglobin A1c 5.59 (4.5-6.0) % Calcium (8.4-10.2) mg/dL Magnesium (1.6-2.3) mg/dL Total Bilirubin (0.2-1.3) mg/dL AST (14-36) U/L ALT (0-35) U/L Alkaline Phosphatase (38-126) U/L Serum Total Protein (6.3-8.2) g/dL Albumin (3.5-5.0) g/dL 05/06/20 Range/Units 05:13 WBC (4.0-10.5) K/mm3 RBC (4.1-5.4) M/mm3 Hgb (12.0-16.0) gm/dl Hct (35-47) % MCV (78-100) fl MCH (26-32) pg MCHC (32-36) g/dl RDW (11.5-14.0) % Plt Count (150-450) K/mm3 MPV (7.5-11.0) fl Gran % (36.0-66.0) % Eos # (Auto) (0-0.5) Absolute Lymphs (auto) (1.0-4.6) Absolute Monos (auto) (0.0-1.3) Lymphocytes % (24.0-44.0) % Monocytes % (0.0-12.0) % Eosinophils % (0.00-5.0) % Basophils % (0.0-0.4) % Absolute Granulocytes (1.4-6.9) Basophils # (0-0.4) Sodium 139 (137-145) mmol/L Potassium 3.3 L (3.5-5.1) mmol/L Chloride 105 (98-107) mmol/L Carbon Dioxide 28 (22-30) mmol/L Anion Gap 8.7 (5-15) MEQ/L BUN 8 (7-17) mg/dL Creatinine 0.54 (0.52-1.04) mg/dL Estimated GFR > 60.0 ML/MIN Glucose 131 H (74-106) mg/dL POC Glucometer (50 to 500) mg/dL Hemoglobin A1c (4.5-6.0) % Calcium 8.2 L (8.4-10.2) mg/dL Magnesium 1.8 (1.6-2.3) mg/dL Total Bilirubin 0.80 (0.2-1.3) mg/dL AST 16 (14-36) U/L ALT 14 (0-35) U/L Alkaline Phosphatase 55 (38-126) U/L Serum Total Protein 7.0 (6.3-8.2) g/dL Albumin 3.5 (3.5-5.0) g/dL Radiology Exams: Radiology Procedures Category Date Time Status ABDOMEN 2 VIEW DAILY Exams 05/06/20 06:15 Taken ABDOMEN 2 VIEW DAILY Exams 05/07/20 07:00 Ordered ABDOMEN 2 VIEW DAILY Exams 05/08/20 07:00 Ordered ABDOMEN 2 VIEW DAILY Exams 05/09/20 07:00 Ordered ABDOMEN 2 VIEW DAILY Exams 05/10/20 07:00 Ordered ABDOMEN AND PELVIS W CONTRAST [CT] Stat Exams 05/05/20 23:34 Completed CHEST 1 VIEW (PORTABLE) Stat Exams 05/05/20 01:48 Completed CHEST 1 VIEW (PORTABLE) Stat Exams 05/05/20 10:50 Completed KUB Stat Exams 05/05/20 10:16 Completed Assessment/Plan (1) Small bowel obstruction Current Visit: Yes Status: Acute Assessment & Plan: Has NG in place. On zosyn and flagyl day #2. Surgery following, thank you. I explained possible etiology of SBO (adhesions), reason for avoiding more surgery, and uncertain time course. Will talk with pt's as well. Code(s): K56.609 - UNSP INTESTNL OBST, UNSP TO PARTIAL VERSUS COMPLETE OBST (2) Anxiety Current Visit: Yes Status: Chronic Assessment & Plan: Changed ativan to scheduled. Code(s): F41.9 - ANXIETY DISORDER, UNSPECIFIED (3) Tobacco abuse Current Visit: Yes Status: Chronic Assessment & Plan: changed nicoderm to 21mg daily. Code(s): Z72.0 - TOBACCO USE (4) Hypertensive urgency Current Visit: Yes Status: Resolved Code(s): I16.0 - HYPERTENSIVE URGENCY
--- NOTE | 2020-05-06 09:28 | XRAY ---
Indication: Small bowel obstruction. Comparison: KUB one day earlier. 2 view abdomen again demonstrates gastric NG tube with tiny radiopacities and contrast distended urinary bladder. New left abdomen air distended small bowel loops with asynchronous fluid leveling favoring known distal small bowel obstruction. Remaining abdomen unremarkable with stable degenerative spondylosis.
[2020-05-06] MEDS ORDERED: NORVASC 5 MG PO SCH (10:00)
[2020-05-06] MEDS ORDERED: Paxil 20 MG PO SCH (10:00)
[2020-05-06] MEDS ORDERED: NON-FORMULARY ITEM (Amlodipine Besylate 10 Mg [Norvasc 10 Mg] 10 MG) PO SCH (10:00)
[2020-05-06] MEDS: Ativan 2 MG/1 ML VIAL IV SCH ×4 (10:33→21:10)
[2020-05-06] MEDS: Coreg 3.125 MG PO SCH ×2 (10:48→22:52)
[2020-05-06] MEDS: PROTONIX 40 MG IV IV SCH (10:49)
[2020-05-06] MEDS: Zofran 4 MG/2 ML VIAL IV PRN ×2 (11:22→18:41)
--- NOTE | 2020-05-06 11:48 | CONS ---
CONSULT DATE: 05/05/2020 HISTORY: The patient is seen for Dr. Joss Beaver. This 44 year old patient had a couple prior ventral hernia repairs by him. She came in with some abdominal cramping, some nausea, had some loose stools and vomited once. Symptoms started yesterday. She came in during the middle of the night and NG placed. She is actually feeling some better today. She is afebrile currently. She had blood pressure 206/124 in the emergency room last night. PAST MEDICAL HISTORY: Obesity, hypertension, degenerative disc disease, osteoarthritis. She had anxiety, depression, panic disorder in the past. PAST SURGICAL HISTORY: section in the past. D&C in the past. Four right knee surgeries. She had two ventral hernia repairs by Dr. Beaver in the past. MEDICATIONS: Xanax, Norvasc, Paxil, Coreg, vitamin D2, vitamin D, Narcan PRN. She has been on Ozempic and Ultram. ALLERGIES: FLUOXETINE CAUSES HIVES. FAMILY HISTORY: Negative for inflammatory bowel disease according to the patient. SOCIAL HISTORY: History of smoking, denies alcohol abuse. REVIEW OF SYSTEMS: She is afebrile. She is hypertensive. Fourteen systems reviewed pertinent for as noted above. No chest pain or palpitations. She had some radiodensities on CT scan but she said she has not had any prior stomach surgery so maybe pills or food particles. Other systems negative or noncontributory as above and per preadmission questionnaire. PHYSICAL EXAMINATION: GENERAL: No acute distress. HEENT: Sclera nonicteric. NECK: No JVD. CHEST: Equal excursion, nonlabored breathing. CVS: Regular rhythm and pulse. ABDOMEN: Obese. She has some minimal mid abdomen a little bit towards the right of the mid abdomen, tenderness. No peritoneal signs. No ventral hernia lower abdominal area per Dr. Beaver. No palpable incarcerated hernia. No peritoneal signs. EXTREMITIES: No cyanosis. NEURO: Alert, moving extremities symmetrically. PSYCH: Appropriate mood and affect. LAB DATA AND TESTS: CT reviewed had some mildly distended small bowel loops, slightly more decompressed more distally with gas in the colon. No free air. No collection. No gross recurrent hernias at this time. IMPRESSION: Some vague abdominal aches, had some nausea and vomited once and loose stool she said, no bloody stool. CT scan showed a little fluid filled loops of bowel possible partial obstruction. Other differential could include enteritis versus partial obstruction, inflammatory bowel disease or other etiology. Either way no emergent surgery necessary as she is feeling better with NG decompression. Recommend continued bowel rest, will start some empiric antibiotics to cover if this happens to be enteritis or enterocolitis component. Otherwise NG decompression, follow serial films and labs. Again, I will let Dr. Beaver the patient is here as he had done her abdominal operations in the past. Continue trial conservative management, bowel rest, IV hydration, NG decompression for now. Again, she will see Dr. Beaver who had done her past two abdominal operations.
[2020-05-06] MEDS: Lactated Ringers 1,000 ML IV SCH (13:39)
[2020-05-06] MEDS ORDERED: Paxil 20 MG PO ONE (17:00)
[2020-05-06] MEDS ORDERED: NORVASC 5 MG PO ONE (17:00)
[2020-05-06] MEDS ORDERED: Coreg 3.125 MG PO ONE (17:00)
[2020-05-07] MEDS: Ativan 2 MG/1 ML VIAL IV SCH ×2 (01:07→05:14)
[2020-05-07] MEDS: Lactated Ringers 1,000 ML IV SCH (02:54)
[2020-05-07] MEDS: Zosyn 3.375 GM Vial 3.375 GM in Sodium Chloride 100ML MINI-BAG PLUS 100 ML IV SCH (02:55)
[2020-05-07] MEDS: FLAGYL 500 MG IVPB 500 MG/100 ML BAG IV SCH (05:15)
[2020-05-07 07:40] VITALS: BP 139/75; PULSE 92; O2SAT 95
--- NOTE | 2020-05-07 08:36 | PCM.DS ---
Discharge Summary Date of Admission: 05/05/20 11:28 Admitting Physician: FELTON CALDERÓN Consults: Consults on Case 05/05/20 08:53 Consult Surgery ROUTINE Primary Care Provider: FELTON CALDERÓN Allergies Allergies fluoxetine HCl [From Prozac] Allergy (Intermediate, Verified 05/04/20 23:03) [facility] Summary - Hospital Course Hospital Course: Pt is a 44 yo female pt of mine from [facility] with HTN and anxiety who came to ER with abd pain and was found to have SBO. NG tube was placed. Yesterday pt was not having pain but overall not feeling well. Her NG was removed yesterday and she has been tolerating clear liquids and passing stools. Denies any pain. Would very much like to go home today. When she tolerates jello, ok to discharge to home. We discussed diet and how to slowly advance. If any increase or return of symptoms she will return to hospital [facility]. - Vitals & Intake/Output Vital Signs: Vital Signs Temperature 98.0 F 05/07/20 07:39 Pulse Rate 92 H 05/07/20 07:39 Respiratory Rate 16 05/07/20 07:39 Blood Pressure 139/75 05/07/20 07:39 O2 Sat by Pulse Oximetry 95 05/07/20 07:39 Intake & Output: Intake & Output 05/04/20 05/05/20 05/06/20 05/07/20 11:59 11:59 11:59 11:59 Intake Total 2965 3189 Output Total 100 1050 1351 Balance -100 1915 1838 Weight 126.6 kg 126.4 kg 129.2 kg - Lab Result Diagrams: 05/06/20 05:13 05/06/20 05:13 Micro Results-Entire Visit: Microbiology 05/04/20 23:40 Urine Culture - Final Urine, Void <10K NORMAL SKIN MICHELA PROBABLE SKIN CONTAMINANT - Radiology Exams Ordered Rad Exams-Entire Visit: Radiology Procedures Category Date Time Status ABDOMEN 2 VIEW DAILY Exams 05/06/20 06:15 Completed ABDOMEN 2 VIEW DAILY Exams 05/07/20 07:00 Taken ABDOMEN 2 VIEW DAILY Exams 05/08/20 07:00 Ordered ABDOMEN 2 VIEW DAILY Exams 05/09/20 07:00 Ordered ABDOMEN 2 VIEW DAILY Exams 05/10/20 07:00 Ordered ABDOMEN AND PELVIS W CONTRAST [CT] Stat Exams 05/05/20 23:34 Completed CHEST 1 VIEW (PORTABLE) Stat Exams 05/05/20 10:50 Completed KUB Stat Exams 05/05/20 10:16 Completed - Procedures and Test Procedures and Tests throughout Hospitalization: Therapy Orders & Screens 05/05/20 08:10 Oxygen Nasal Cannula 3 lpm Comment: Diagnosis: SMALL BOWEL OBSTRUCTION Discharge Exam General Appearance: no apparent distress (looks very well), alert, obese Neurologic Exam: oriented x 3, cooperative Eye Exam: eyes nml inspection Ears, Nose, Throat Exam: moist mucous membranes Neck Exam: normal inspection Respiratory Exam: normal breath sounds, lungs clear, No crackles/rales, No rhonchi, No wheezing Cardiovascular Exam: regular rate/rhythm, normal heart sounds, No murmur Gastrointestinal/Abdomen Exam: soft, No normal bowel sounds (hypoactive, but present), No tenderness, No distention, No mass, No guarding, No rebound Back Exam: normal inspection, No rash Extremity Exam: normal inspection, No pedal edema, No swelling Skin Exam: normal color, warm, dry, No rash Final Diagnosis/Problem List - Final Discharge Diagnosis/Problem (1) Small bowel obstruction Current Visit: Yes Status: Resolved Assessment & Plan: Has been on zosyn and flagyl, day #3 today. Will send pt home on 4d of po augmentin and flagyl. F/u with me in 1 week. Probiotics while on antibiotic. Code(s): K56.609 - UNSP INTESTNL OBST, UNSP TO PARTIAL VERSUS COMPLETE OBST (2) Anxiety Current Visit: Yes Status: Chronic Code(s): F41.9 - ANXIETY DISORDER, UNSPECIFIED (3) Tobacco abuse Current Visit: Yes Status: Chronic Code(s): Z72.0 - TOBACCO USE (4) Hypertensive urgency Current Visit: Yes Status: Resolved Code(s): I16.0 - HYPERTENSIVE URGENCY - Discharge Disposition: Home, Self-Care Condition: Good Prescriptions: New Lactobacillus Acidophilus [Acidophilus Lactobacilli] 1 each PO TID #12 capsule Amoxicillin/Potassium Clav [Augmentin 875-125 Tablet] 875 mg PO BID #8 tablet metroNIDAZOLE [Flagyl] 500 mg PO TID #12 tablet Nicotine 21 mg [Nicoderm CQ 21 MG] 21 mg TOP Q24H #7 patch Continue Alprazolam 1 mg [Xanax 1 mg] 0.5 mg PO BID Paroxetine HCl 20 mg [Paxil 20 MG] 20 mg PO DAILY Amlodipine Besylate 10 mg [Norvasc 10 MG] 10 mg PO DAILY Semaglutide [Ozempic] 2 ml SQ WEEKLY Tramadol HCl 50 mg [Ultram 50 mg] 50 mg PO Q4HPRN PRN PRN Reason: Pain Ergocalciferol (Vitamin D2) [Vitamin D] 1 cap PO WEEKLY Carvedilol 3.125 mg [Coreg 3.125 MG] 3.125 mg PO BID Naloxone HCl [Narcan] 1 spray .ROUTE UD PRN PRN Reason: Overdose Hydrocodone/Acetaminophen [[place] 5-325 Tablet] 1 each PO Q6H PRN MDD 4 PRN Reason: Pain Follow up with: KAYLEIGH HATCH [ACTIVE STAFF] - 1 Week FELTON CALDERÓN [Primary Care Provider] - 1 Week
--- NOTE | 2020-05-07 08:50 | XRAY ---
Indication: Follow-up small bowel obstruction. Comparison: One day earlier. 2 view abdomen demonstrates NG tube removal. Stable left abdomen air distended small bowel loop with fluid leveling and paucity distal bowel gas. Previous gastric radiopacities now scattered distally. Above findings would suggest partial small bowel obstruction. Remaining abdomen unremarkable.
[2020-05-07 08:56] LABS: Absolute Neutrophil Ct (ANC) 3.72 (1.4-6.9); BASOPHIL % 0.3 % (0.0-0.4); Basophil (Absolute #) 0.02 (0-0.4); Eosinophil % 3.3 % (0.00-5.0); Eosinophil (Absolute #) 0.23 (0-0.5); Hematocrit 43.9 % (35-47); Hemoglobin 14.2 gm/dl (12.0-16.0); Lymphocyte (Absolute #) 2.06 (1.0-4.6); Lymphocytes % 29.9 % (24.0-44.0); Mean Cell Volume 99.1 fl (78-100); Mean Corpuscular Hemoglobin 32.1 pg (26-32); Mean Corpuscular Hgb Concent. 32.3 g/dl (32-36); Mean Platelet Volume 9.5 fl (7.5-11.0); Monocyte (Absolute #) 0.87 (0.0-1.3); Monocytes % 12.6 % (0.0-12.0); Neutrophil % 53.9 % (36.0-66.0); Platelet Count 235 K/mm3 (150-450); Red Blood Count 4.43 M/mm3 (4.1-5.4); Red Cell Distribution Width 15.2 % (11.5-14.0); White Blood Count 6.9 K/mm3 (4.0-10.5)
[2020-05-07 09:35] LABS: ANION GAP 7.5 MEQ/L (5-15); BLOOD UREA NITROGEN 9 mg/dL (7-17); CHLORIDE 104 mmol/L (98-107); Calcium 8.1 mg/dL (8.4-10.2); Carbon Dioxide 30 mmol/L (22-30); Creatinine 1 0.53 mg/dL (0.52-1.04); EST GLOMERULAR FILTRATION RATE > 60.0 ML/MIN; Glucose 103 mg/dL (74-106); Potassium 3.2 mmol/L (3.5-5.1); SODIUM 139 mmol/L (137-145)
[2020-05-07] MEDS ORDERED: Paxil 20 MG PO SCH (10:00)
== END 2020-05-07 09:30 | disposition home or self-care (01) | DRG 390 ==
LOC: ED 22:54 → MED SURG 05-05 01:26 → OBSVTOIN 05-05 11:28
PROVIDERS: ADMIT Family Medicine; ATTEND Family Medicine
DX: K56.609 Unspecified intestinal obstruction, unspecified as to partial versus complete obstruction (principal); I10 Essential (primary) hypertension; F41.9 Anxiety disorder, unspecified; I16.0 Hypertensive urgency; Z72.0 Tobacco use; Z79.899 Other long term (current) drug therapy
CPT/HCPCS: 36000; 36415; 71045; 74018; 74021; 74177; 80048; 80053; 81001; 82962; 83036; 83690; 83735; 84484; 84703; 85025; 87086; 93005; 94760; 94762; 96360; 96374; 96375; 99285; J0360; J2060; J2270; J2405; A9270-GY

== ENCOUNTER 2021-11-06 01:53 | Observation (INO) | payer BC ==
[2021-11-06 02:38] LABS: Absolute Neutrophil Ct (ANC) 9.32 (1.4-6.9); Basophil (Absolute #) 0.03 (0-0.4); Eosinophil % 2.9 % (0.00-5.0); Eosinophil (Absolute #) 0.33 (0-0.5); Hemoglobin 15.2 gm/dl (12.0-16.0); Lymphocyte (Absolute #) 0.96 (1.0-4.6); Lymphocytes % 8.5 % (24.0-44.0); Mean Cell Volume 97.4 fl (78-100); Mean Corpuscular Hemoglobin 32.9 pg (26-32); Mean Corpuscular Hgb Concent. 33.8 g/dl (32-36); Monocytes % 5.3 % (0.0-12.0); Platelet Count 237 K/mm3 (150-450); Red Blood Count 4.62 M/mm3 (4.1-5.4); Red Cell Distribution Width 13.9 % (11.5-14.0); White Blood Count 11.2 K/mm3 (4.0-10.5)
[2021-11-06] MEDS ORDERED: solu-MEDROL 125 MG, Sterile H2O 10 ml 2 ML IV ONE ×2 (02:54)
[2021-11-06] MEDS ORDERED: DUONEB 0.5-3 MG/3 ml Neb IH ONE ×4 (02:55→04:16)
[2021-11-06] MEDS ORDERED: solu-MEDROL ONE ×2 (02:56→21:18)
[2021-11-06] MEDS ORDERED: Sterile H2O 10 ml IJ ONE (02:56)
--- NOTE | 2021-11-06 02:59 | ERPHSYRPT ---
- History of Present Illness Time Seen by Provider: 11/06/21 02:00 Source: patient Patient Subjective Stated Complaint: sob, anxiety Triage Nursing Assessment: pt states, "I was trying to go to sleep and I felt sob". My came home from work and I put my cpap on and it did help. Pt became anxious after putting the cpap on. Lungs clear, resp shallow as she's not taking deep breaths. Pt has an itchy throat but denies any cough. Physician History: Patient is a 46-year-old female presents to emergency department for evaluation of shortness of breath. Patient arrived from work. Patient told her CPAP on and felt short of breath. No chest pain. No nausea vomiting or diaphoresis. No fever. No rash. Symptoms are moderate in intensity. No specific worsening or improving factors. Patient has a history of asthma. No COPD. Patient voices no other complaints or concerns at this time. Timing/Duration: today Activities at Onset: none Severity of Dyspnea-Max: moderate Severity of Dyspnea-Current: mild Possible Cause: occasional episodes Modifying Factors: Improves With: activity Associated Symptoms: anxiety, No fever, No ankle swelling, No calf pain, No muscle spasms hands, No painful breathing, No productive cough, No sweating, No tingling face Allergies/Adverse Reactions: fluoxetine HCl [From [employer]] Allergy (Intermediate, Verified 11/06/21 02:08) Hives hives Home Medications: ALPRAZolam 1 MG [Xanax 1 mg] 1 mg PO BID 08/14/14 [History] Paroxetine HCl 20 mg [Paxil 20 MG] 20 mg PO DAILY 11/02/17 [History] Carvedilol 3.125 mg [Coreg 3.125 MG] 3.125 mg PO BID 05/05/20 [History] Ergocalciferol (Vitamin D2) [Vitamin D] 1 cap PO WEEKLY 05/05/20 [History] Hydrocodone/Acetaminophen [[place] 5-325 Tablet] 1 each PO Q6H PRN MDD 4 05/05/20 [History] Semaglutide [Ozempic] 1 ml SQ WEEKLY 05/05/20 [History] Hx Tetanus, Diphtheria Vaccination/Date Given: (unknown) Hx Influenza Vaccination/Date Given: No Hx Pneumococcal Vaccination/Date Given: No Immunizations Up to Date: No Travel Risk - International Travel Have you traveled outside of the country in past 3 weeks: No - Coronavirus Screening Are you exhibiting any of the following symptoms?: Yes Symptoms: Shortness of Breath Close contact with a COVID-19 positive Pt in past 14-21 Days: No - Vaccine Status Have you recieved a Covid-19 vaccination: Yes Paper Machine Tender: Pfizer - Vaccination Dates Date of 2cond Vaccination (if applicable): 11/2020 - Review of Systems Constitutional: No Symptoms, No Fever, No Chills Eyes: No Symptoms Ears, Nose, & Throat: No Symptoms Respiratory: No Symptoms, No Cough, No Dyspnea Cardiac: No Symptoms, No Chest Pain, No Edema, No Syncope Abdominal/Gastrointestinal: No Symptoms, No Abdominal Pain, No Nausea, No Vomiting, No Diarrhea Genitourinary Symptoms: No Symptoms, No Dysuria Musculoskeletal: No Symptoms, No Back Pain, No Neck Pain Skin: No Symptoms, No Rash Neurological: No Symptoms, No Dizziness, No Focal Weakness, No Sensory Changes Psychological: No Symptoms Endocrine: No Symptoms Hematologic/Lymphatic: No Symptoms Immunological/Allergic: No Symptoms All Other Systems: Reviewed and Negative - Past Medical History Pertinent Past Medical History: Yes Neurological History: No Pertinent History ENT History: No Pertinent History Cardiac History: Hypertension Respiratory History: Asthma, Sleep Apnea Endocrine Medical History: Hypothyroidism Musculoskeletal History: Degenerative Disk Disease, Osteoarthritis GI Medical History: Hemorrhoids, Hernia History: No Pertinent History Psycho-Social History: Anxiety, Depression, Panic Disorder Female Reproductive Disorders: No Pertinent History - Past Surgical History Past Surgical History: Yes Neuro Surgical History: No Pertinent History Cardiac: No Pertinent History Respiratory: No Pertinent History Gastrointestinal: Hernia Repair Genitourinary: No Pertinent History Musculoskeletal: Orthopedic Surgery Female Surgical History: Dilation & Curettage, Section Other Surgical History: D &C 2007, cervical cerclage 2009, right knee(four surgeries),hernia surgery x two - Social History Smoking Status: Current every day smoker How long have you smoked: 20 yrs Exposure to second hand smoke: No Drug Use: none Patient Lives Alone: No Significant Family History: no pertinent family hx - Female History Hx Now: No - Nursing Vital Signs Nursing Vital Signs: Initial Vital Signs Temperature 99.7 F 11/06/21 01:54 Pulse Rate 103 H 11/06/21 01:54 Respiratory Rate 22 11/06/21 01:54 Blood Pressure 176/88 03/24/22 01:54 O2 Sat by Pulse Oximetry 96 11/06/21 01:54 Pain Scale Pain Intensity 0 - Physical Exam General Appearance: no apparent distress, alert Eye Exam: PERRL/EOMI, eyes nml inspection Ears, Nose, Throat Exam: hearing grossly normal, normal ENT inspection, normal pharynx Neck Exam: normal inspection, supple, full range of motion Respiratory Exam: lungs clear, airway intact, diminished breath sounds, other (Faint wheezing right lower lobe. Shallow breath sounds. Lungs are clear), No respiratory distress Cardiovascular/Chest Exam: normal heart sounds, regular rate/rhythm Abdominal/Gastrointestinal Exam: soft, normal bowel sounds, No tenderness, No distention, No mass Extremity Exam: non-tender, normal range of motion, normal inspection, no calf tenderness, no pedal edema Peripheral Pulses Exam: dorsalis-pedis (R): 2+, dorsalis-pedis (L): 2+ Neurologic Exam: alert, oriented x 3, cooperative, right of way appraiser II-XII nml as tested, sensation nml, No motor deficits Skin Exam: normal color, warm, other (Draining abscess right posterior thigh.), No dry Lymphatic Exam: No adenopathy SpO2 Interpretation: normal SpO2: 99 - Course Nursing assessment & vital signs reviewed: Yes EKG Interpreted by Me: RATE (107), Sinus Rhythm, NORMAL AXIS, NORMAL INTERVALS - Radiology Exams Chest X-ray Interpretation: Interpreted by me (Clear lung robles, intact bony thorax. Normal cardiac silhouette.) Ordered Tests: Active Orders 24 hr Category Date Time Status Director Of Programming STAT Care 11/06/21 02:16 Active EKG-ER Only STAT Care 11/06/21 02:15 Active IV Insertion STAT Care 11/06/21 02:15 Active Pulse Oximetry (ED) STAT Care 11/06/21 02:15 Active CHEST 1 VIEW (PORTABLE) Stat Exams 11/06/21 02:56 Taken CHEST WITH CONTRAST [CT] Stat Exams 11/06/21 06:08 Ordered BLOOD CULTURE Stat Lab 11/06/21 05:30 Received CBC W DIFF Stat Lab 11/06/21 02:33 Completed CMP Stat Lab 11/06/21 02:33 Completed D-DIMER QUANTITATIVE Stat Lab 11/06/21 02:33 Completed NT PRO BNP Stat Lab 11/06/21 02:33 Completed TROPONIN Q3H Lab 11/06/21 02:33 Completed TROPONIN Q3H Lab 11/06/21 05:39 Completed TROPONIN Q3H Lab 11/06/21 08:30 Ordered TROPONIN Q3H Lab 11/06/21 11:30 Ordered TROPONIN Q3H Lab 11/06/21 14:30 Ordered Respiratory Therapy Assessment DAILY RT 11/06/21 03:09 Active Medication Summary Generic Name Dose Route Start Last Admin Trade Name Freq PRN Reason Stop Dose Admin Azithromycin 500 mg in 250 mls @ 250 mls/hr 11/06/21 05:55 11/06/21 06:28 Zithromax 500 Mg/ 250 Ml Nacl Premix IV 11/06/21 06:54 250 mls/hr STAT STA 250 mls/hr Administration Discontinued Medications Generic Name Dose Route Start Last Admin Trade Name Freq PRN Reason Stop Dose Admin Albuterol/Ipratropium 3 ml 11/06/21 02:55 11/06/21 03:00 Ipratropium/Albuterol Sulfate 3 Ml Ampul.Neb 11/06/21 02:56 3 ml STAT ONE Administration Albuterol/Ipratropium Confirm 11/06/21 02:58 Ipratropium/Albuterol Sulfate 3 Ml Ampul.Neb Administered 11/06/21 02:59 Dose 3 ml IH .STK-MED ONE Albuterol/Ipratropium 3 ml 11/06/21 04:10 11/06/21 04:20 Ipratropium/Albuterol Sulfate 3 Ml Ampul.Neb IH 11/06/21 04:11 3 ml STAT ONE Administration Albuterol/Ipratropium Confirm 11/06/21 04:16 Ipratropium/Albuterol Sulfate 3 Ml Ampul.Neb Administered 11/06/21 04:17 Dose 3 ml IH .STK-MED ONE Alprazolam 0.5 mg 11/06/21 05:50 11/06/21 06:00 Alprazolam 0.5 Mg Tablet PO 11/06/21 05:51 0.5 mg STAT ONE Administration Alprazolam Confirm 11/06/21 05:57 Alprazolam 0.5 Mg Tablet Administered 11/06/21 05:58 Dose 0.5 mg .ROUTE .STK-MED ONE Methylprednisolone Sodium 0 mg 11/06/21 02:54 11/06/21 02:57 Succinate 125 mg/ Sterile IV 11/06/21 02:55 125 mg Water 2 ml STAT ONE Administration Ceftriaxone Sodium/Dextrose 1 g in 50 mls @ 100 mls/hr 11/06/21 05:55 11/06/21 05:59 Rocephin 1 Gm-D5w 50 Ml Bag IV 11/06/21 06:24 100 mls/hr STAT STA 100 mls/hr Administration Ceftriaxone Sodium/Dextrose Confirm 11/06/21 05:57 Rocephin 1 Gm-D5w 50 Ml Bag Administered 11/06/21 05:58 Dose 1 g in 50 mls @ ud IV .STK-MED ONE Azithromycin Confirm 11/06/21 06:19 Zithromax 500 Mg/ 250 Ml Nacl Premix Administered 11/06/21 06:20 Dose 500 mg in 250 mls @ ud IV .STK-MED ONE Methylprednisolone Sodium Succinate Confirm 11/06/21 02:56 Methylprednis Sod Succ 125 Mg/2 Ml Vial Administered 11/06/21 02:57 Dose 125 mg .ROUTE .STK-MED ONE Ondansetron HCl 4 mg 11/06/21 04:23 11/06/21 04:25 Ondansetron Hcl 4 Mg/2 Ml Vial IV 11/06/21 04:24 4 mg STAT ONE Administration Ondansetron HCl Confirm 11/06/21 04:24 Ondansetron Hcl 4 Mg/2 Ml Vial Administered 11/06/21 04:25 Dose 4 mg .ROUTE .STK-MED ONE Sterile Water Confirm 11/06/21 02:56 Water For Injection,Sterile 10 Ml Vial Administered 11/06/21 02:57 Dose 10 ml IJ .STK-MED ONE Lab/Rad Data: Laboratory Result Diagrams 11/06/21 02:33 11/06/21 02:33 Laboratory Results 11/06/21 11/06/21 11/06/21 Range/Units 05:39 02:33 02:33 WBC (4.0-10.5) K/mm3 RBC (4.1-5.4) M/mm3 Hgb (12.0-16.0) gm/dl Hct (35-47) % MCV (78-100) fl MCH (26-32) pg MCHC (32-36) g/dl RDW (11.5-14.0) % Plt Count (150-450) K/mm3 MPV (7.5-11.0) fl Gran % (36.0-66.0) % Eos # (Auto) (0-0.5) Absolute Lymphs (auto) (1.0-4.6) Absolute Monos (auto) (0.0-1.3) Lymphocytes % (24.0-44.0) % Monocytes % (0.0-12.0) % Eosinophils % (0.00-5.0) % Basophils % (0.0-0.4) % Absolute Granulocytes (1.4-6.9) Basophils # (0-0.4) D-Dimer 453 (215-500) ng/mL Sodium (137-145) mmol/L Potassium (3.5-5.1) mmol/L Chloride (98-107) mmol/L Carbon Dioxide (22-30) mmol/L Anion Gap (5-15) MEQ/L BUN (7-17) mg/dL Creatinine (0.52-1.04) mg/dL Estimated GFR ML/MIN Glucose (74-106) mg/dL Calcium (8.4-10.2) mg/dL Total Bilirubin (0.2-1.3) mg/dL AST (14-36) U/L ALT (0-35) U/L Alkaline Phosphatase (38-126) U/L Troponin I < 0.012 < 0.012 (0.000-0.034) ng/mL NT-Pro-B Natriuret Pep (0-450) pg/mL Serum Total Protein (6.3-8.2) g/dL Albumin (3.5-5.0) g/dL 11/06/21 11/06/21 Range/Units 02:33 02:33 WBC 11.2 H (4.0-10.5) K/mm3 RBC 4.62 (4.1-5.4) M/mm3 Hgb 15.2 (12.0-16.0) gm/dl Hct 45.0 (35-47) % MCV 97.4 (78-100) fl MCH 32.9 H (26-32) pg MCHC 33.8 (32-36) g/dl RDW 13.9 (11.5-14.0) % Plt Count 237 (150-450) K/mm3 MPV 9.0 (7.5-11.0) fl Gran % 83.0 H (36.0-66.0) % Eos # (Auto) 0.33 (0-0.5) Absolute Lymphs (auto) 0.96 L (1.0-4.6) Absolute Monos (auto) 0.60 (0.0-1.3) Lymphocytes % 8.5 L (24.0-44.0) % Monocytes % 5.3 (0.0-12.0) % Eosinophils % 2.9 (0.00-5.0) % Basophils % 0.3 (0.0-0.4) % Absolute Granulocytes 9.32 H (1.4-6.9) Basophils # 0.03 (0-0.4) D-Dimer (215-500) ng/mL Sodium 136 L (137-145) mmol/L Potassium 4.0 (3.5-5.1) mmol/L Chloride 100 (98-107) mmol/L Carbon Dioxide 29 (22-30) mmol/L Anion Gap 11.4 (5-15) MEQ/L BUN 4 L (7-17) mg/dL Creatinine 0.53 (0.52-1.04) mg/dL Estimated GFR > 60.0 ML/MIN Glucose 123 H (74-106) mg/dL Calcium 8.8 (8.4-10.2) mg/dL Total Bilirubin 0.50 (0.2-1.3) mg/dL AST 43 H (14-36) U/L ALT 31 (0-35) U/L Alkaline Phosphatase 66 (38-126) U/L Troponin I (0.000-0.034) ng/mL NT-Pro-B Natriuret Pep 39.2 (0-450) pg/mL Serum Total Protein 7.3 (6.3-8.2) g/dL Albumin 3.7 (3.5-5.0) g/dL - Progress Progress: improved Air Movement: good Progress Note: Case discussed with Dr. Miller covering Dr. Pittman. Dr. Miller accepts admission to observation. Covid test pending. D-dimer negative. But due to patient's hypoxia tachycardia and tachypnea we elected to perform a CTA chest to rule out PE. Patient currently being treated for possible COPD. Patient receiving antibiotics. Blood cultures obtained. Patient will be admitted. Plan of care discussed with patient. She agrees to admission [facility]. CT chest pending. Patient endorsed to Dr. Kam at change of shift. Was also follow-up on pending CT, Covid test and place admission orders. Portions of this note were created with voice recognition technology. There may be grammatical, spelling, punctuation or sound alike errors 11/06/21 06:49 Blood Culture(s) Obtained: No Antibiotics given: No Discussed with : Rosa Elena Will see patient in: hospital (observation) Counseled pt/family regarding: lab results, diagnosis, need for follow-up, rad results - Departure Departure Disposition: Observation Clinical Impression: SOB (shortness of breath), Hypoxia, Asthma exacerbation Condition: Stable Critical Care Time: No Referrals: FELTON HUMMEL [Primary Care Provider] - Follow up/PCP as directed
[2021-11-06 03:05] LABS: ALBUMIN 3.7 g/dL (3.5-5.0); ALKALINE PHOSPHATASE 66 U/L (38-126); ANION GAP 11.4 MEQ/L (5-15); BLOOD UREA NITROGEN 4 mg/dL (7-17); CHLORIDE 100 mmol/L (98-107); Calcium 8.8 mg/dL (8.4-10.2); Carbon Dioxide 29 mmol/L (22-30); Creatinine 1 0.53 mg/dL (0.52-1.04); EST GLOMERULAR FILTRATION RATE > 60.0 ML/MIN; Glucose 123 mg/dL (74-106); NT PRO BNP 39.2 pg/mL (0-450); SGOT/AST 43 U/L (14-36); SGPT/ALT 31 U/L (0-35); SODIUM 136 mmol/L (137-145); Total Protein 7.3 g/dL (6.3-8.2)
[2021-11-06] MEDS ORDERED: Zofran 4 MG/2 ML VIAL IV ONE (04:23)
[2021-11-06] MEDS ORDERED: Zofran 4 MG/2 ML VIAL ONE (04:24)
[2021-11-06] MEDS ORDERED: xanAX 0.5 MG PO ONE ×2 (05:50→07:23)
[2021-11-06] MEDS ORDERED: ROCEPHIN 1 Gm-D5w 50 ml Bag** 1 G/50 ML IVPB IV STA (05:55)
[2021-11-06] MEDS ORDERED: Zithromax 500 MG/ 250 ML NaCl Premix 500 MG/250 ML IVPB IV STA (05:55)
[2021-11-06] MEDS ORDERED: ROCEPHIN 1 Gm-D5w 50 ml Bag** 1 G/50 ML IVPB IV ONE (05:57)
[2021-11-06] MEDS ORDERED: xanAX 0.5 MG ONE ×2 (05:57→07:17)
[2021-11-06] MEDS ORDERED: Zithromax 500 MG/ 250 ML NaCl Premix 500 MG/250 ML IVPB IV ONE (06:19)
[2021-11-06 06:47] LABS: INFLUENZA A NEGATIVE (NEGATIVE); INFLUENZA B NEGATIVE (NEGATIVE); RESPIRATORY SYNCTIAL VIRUS NEGATIVE (Negative); SARS-CoV-2 Xpert Express NEGATIVE (NEGATIVE)
[2021-11-06] MEDS ORDERED: Nicoderm CQ 21 MG TOP ONE (07:07)
[2021-11-06] MEDS ORDERED: TYLENOL 325 MG PO PRN (08:11)
[2021-11-06] MEDS ORDERED: Zofran 4 MG/2 ML VIAL IV PRN (08:11)
[2021-11-06] MEDS ORDERED: Sodium Chloride 0.9% 1000 ML 1,000 ML IV SCH (08:11)
--- NOTE | 2021-11-06 09:04 | XRAY ---
Indication: Short of breath, elevated WBC, and elevated d-dimer. Multiple contiguous axial images obtained through the chest using 100 cc Isovue 370 contrast and PE protocol. Comparison: None There is good opacification of the pulmonary arteries. However mild diffuse respiration artifact limits evaluation of the more distal lobar and segmental branches. No obvious pulmonary embolus. Heart not enlarged. Aorta is normal in course and caliber. No pathologic mediastinal/hilar lymphadenopathy. Incompletely visualized enlarged thyroid gland. Lungs demonstrates mild bilateral scattered subsegmental atelectasis/scarring greatest left upper lobe. No suspicious pulmonary mass, infiltrate, or effusion. Bony thorax intact with mild degenerative changes throughout the spine. Limited upper abdomen demonstrates fatty liver and 2 cm left adrenal adenoma. Impression: 1. Pulmonary embolus evaluation limited by respiration artifact. No obvious pulmonary embolus. 2. Bilateral subsegmental atelectasis/scarring. 3. Incidental fatty liver, left adrenal adenoma, and incompletely visualized enlarged thyroid gland.
--- NOTE | 2021-11-06 09:06 | XRAY ---
Indication: Short of breath. Comparison: May 05, 2020. Portable chest better inflated and now clear. Heart not enlarged. Bony thorax intact. No new/acute findings.
[2021-11-06] MEDS: Ativan 2 MG/1 ML VIAL IV PRN ×3 (09:49→22:51)
[2021-11-06] MEDS ORDERED: SEMAGLUTIDE SQ SCH (13:45)
[2021-11-06] MEDS ORDERED: MEDICATION INTERVENTION MC SCH (13:45)
[2021-11-06] MEDS: Paxil 20 MG PO SCH (14:21)
[2021-11-06] MEDS: Coreg 3.125 MG PO SCH ×2 (14:21→21:25)
[2021-11-06] MEDS: XANAX 1 MG PO SCH ×2 (14:22→21:25)
[2021-11-06] MEDS: solu-MEDROL 80 MG, Sterile H2O 10 ml 2 ML IV SCH ×4 (14:22→21:29)
[2021-11-06] MEDS: DUONEB 0.5-3 MG/3 ml Neb IH SCH ×2 (14:52→18:48)
--- NOTE | 2021-11-06 17:19 | PCM.SSS ---
History of Present Illness - Chief Complaint Chief Complaint: shortness of breath History of Present Illness: is a 46 year old female with multiple health problems who presented to ER c/o sob. Medications & Allergies Home Medications: Home Medication List ALPRAZolam 1 MG [Xanax 1 mg] 1 mg PO BID 08/14/14 [History Confirmed 11/06/21] Paroxetine HCl 20 mg [Paxil 20 MG] 20 mg PO DAILY 11/02/17 [History Confirmed 11/06/21] Carvedilol 3.125 mg [Coreg 3.125 MG] 3.125 mg PO BID 05/05/20 [History Confirmed 11/06/21] Ergocalciferol (Vitamin D2) [Vitamin D] 1 cap PO UD 05/05/20 [History Confirmed 11/06/21] Hydrocodone/Acetaminophen [[place] 5-325 Tablet] 1 each PO Q6H PRN MDD 4 05/05/20 [History Confirmed 11/06/21] Semaglutide [Ozempic] 1 ml SQ WEEKLY 05/05/20 [History Confirmed 11/06/21] Mecobalamin [B12 Active] 1,000 mcg PO DAILY 11/06/21 [History Confirmed 11/06/21] Allergies/Adverse Reactions: Allergies Allergy/AdvReac Type Severity Reaction Status Date / Time fluoxetine HCl [From Prozac] Allergy Intermediate Hives Verified 11/06/21 08:52 - Past Medical History Past Medical History: Yes Neurological History: No Pertinent History ENT History: No Pertinent History Cardiac History: Hypertension Respiratory History: Asthma, CHF, Sleep Apnea Endocrine Medical History: Hypothyroidism Musculoskelatal History: Degenerative Disk Disease, Osteoarthritis GI Medical History: Hernia History: No Pertinent History Pyscho-Social History: Anxiety, Depression, Panic Disorder Reproductive Disorders: Other Comment: PCOS - Female History Hx Last Menstrual Period: 10/23/21 Are you now?: No - Past Surgical History Past Surgical History: Yes Neuro Surgical History: No Pertinent History Cardiac History: No Pertinent History Respiratory Surgery: No Pertinent History GI Surgical History: Hemorrhoidectomy, Hernia Repair Genitourinary Surgical Hx: No Pertinent History Musculskeletal Surgical Hx: Orthopedic Surgery Female Surgical History: Dilation & Curettage, Section Other Surgical History: D &C 2007, cervical cerclage 2009, right knee(four surgeries),hernia surgery x two - Social History Smoking Status: Current every day smoker How long have you smoked: 20 years Exposure to second hand smoke: No Alcohol: None Drug Use: none Significant Family History: no pertinent family hx - Physical Exam Vital Signs: Vital Signs - 24 hr Temp Pulse Resp BP Pulse Ox 11/06/21 16:00 97.1 F 112 H 31 H 155/72 90 L 11/06/21 14:56 112 H 20 90 L 11/06/21 11:49 116 H 18 91 L 11/06/21 11:48 97.7 F 111 H 24 134/76 91 L 11/06/21 08:20 97.7 F 113 H 125/60 91 L 11/06/21 07:13 114 H 23 141/78 91 L 11/06/21 06:59 99 11/06/21 05:36 99.1 F 106 H 23 149/78 92 L 11/06/21 04:20 110 H 23 92 L 11/06/21 04:08 107 H 165/91 93 L 11/06/21 03:20 106 H 134/101 94 L 11/06/21 03:09 104 H 18 92 L 11/06/21 02:21 99 11/06/21 01:59 20 96 11/06/21 01:54 99.7 F 103 H 22 176/88 96 General Appearance: mild distress, alert, anxiety Neurologic Exam: alert, oriented x 3, cooperative Eye Exam: other (conjunctiva injected,exopthalmous) Ears, Nose, Throat Exam: moist mucous membranes, pharyngeal erythema (PND no exudate) Respiratory Exam: diminished breath sounds Cardiovascular Exam: tachycardia (regular) Gastrointestinal/Abdomen Exam: soft (nontender) Pelvic Exam: not done Rectal Exam: not done Back Exam: normal inspection Extremity Exam: other (trace ankle edema, right ant lateral thigh with draining pustule- culture taken) Skin Exam: warm (flushed), dry Wound Assessment: Skin/Wound Assessment Wound/Incision Assessment Start: 11/06/21 08:51 Text: Status: Active Freq: Q6H Protocol: Document 11/06/21 14:00 POTTER (Rec: 11/06/21 14:37 POTTER [id number]) Wound Photo Photo Taken No Results - Labs Lab/Micro Results: Lab Results-Last 24 Hours 11/06/21 11/06/21 11/06/21 Range/Units 02:33 02:33 02:33 WBC 11.2 H (4.0-10.5) K/mm3 RBC 4.62 (4.1-5.4) M/mm3 Hgb 15.2 (12.0-16.0) gm/dl Hct 45.0 (35-47) % MCV 97.4 (78-100) fl MCH 32.9 H (26-32) pg MCHC 33.8 (32-36) g/dl RDW 13.9 (11.5-14.0) % Plt Count 237 (150-450) K/mm3 MPV 9.0 (7.5-11.0) fl Gran % 83.0 H (36.0-66.0) % Eos # (Auto) 0.33 (0-0.5) Absolute Lymphs (auto) 0.96 L (1.0-4.6) Absolute Monos (auto) 0.60 (0.0-1.3) Lymphocytes % 8.5 L (24.0-44.0) % Monocytes % 5.3 (0.0-12.0) % Eosinophils % 2.9 (0.00-5.0) % Basophils % 0.3 (0.0-0.4) % Absolute Granulocytes 9.32 H (1.4-6.9) Basophils # 0.03 (0-0.4) D-Dimer 453 (215-500) ng/mL Sodium 136 L (137-145) mmol/L Potassium 4.0 (3.5-5.1) mmol/L Chloride 100 (98-107) mmol/L Carbon Dioxide 29 (22-30) mmol/L Anion Gap 11.4 (5-15) MEQ/L BUN 4 L (7-17) mg/dL Creatinine 0.53 (0.52-1.04) mg/dL Estimated GFR > 60.0 ML/MIN Glucose 123 H (74-106) mg/dL Calcium 8.8 (8.4-10.2) mg/dL Total Bilirubin 0.50 (0.2-1.3) mg/dL AST 43 H (14-36) U/L ALT 31 (0-35) U/L Alkaline Phosphatase 66 (38-126) U/L Troponin I (0.000-0.034) ng/mL NT-Pro-B Natriuret Pep 39.2 (0-450) pg/mL Serum Total Protein 7.3 (6.3-8.2) g/dL Albumin 3.7 (3.5-5.0) g/dL Influenza Type A Ag (NEGATIVE) Influenza Type B Ag (NEGATIVE) RSV (PCR) (Negative) SARS-CoV-2 (PCR) (NEGATIVE) 11/06/21 11/06/21 11/06/21 Range/Units 02:33 05:39 05:58 WBC (4.0-10.5) K/mm3 RBC (4.1-5.4) M/mm3 Hgb (12.0-16.0) gm/dl Hct (35-47) % MCV (78-100) fl MCH (26-32) pg MCHC (32-36) g/dl RDW (11.5-14.0) % Plt Count (150-450) K/mm3 MPV (7.5-11.0) fl Gran % (36.0-66.0) % Eos # (Auto) (0-0.5) Absolute Lymphs (auto) (1.0-4.6) Absolute Monos (auto) (0.0-1.3) Lymphocytes % (24.0-44.0) % Monocytes % (0.0-12.0) % Eosinophils % (0.00-5.0) % Basophils % (0.0-0.4) % Absolute Granulocytes (1.4-6.9) Basophils # (0-0.4) D-Dimer (215-500) ng/mL Sodium (137-145) mmol/L Potassium (3.5-5.1) mmol/L Chloride (98-107) mmol/L Carbon Dioxide (22-30) mmol/L Anion Gap (5-15) MEQ/L BUN (7-17) mg/dL Creatinine (0.52-1.04) mg/dL Estimated GFR ML/MIN Glucose (74-106) mg/dL Calcium (8.4-10.2) mg/dL Total Bilirubin (0.2-1.3) mg/dL AST (14-36) U/L ALT (0-35) U/L Alkaline Phosphatase (38-126) U/L Troponin I < 0.012 < 0.012 (0.000-0.034) ng/mL NT-Pro-B Natriuret Pep (0-450) pg/mL Serum Total Protein (6.3-8.2) g/dL Albumin (3.5-5.0) g/dL Influenza Type A Ag NEGATIVE (NEGATIVE) Influenza Type B Ag NEGATIVE (NEGATIVE) RSV (PCR) NEGATIVE (Negative) SARS-CoV-2 (PCR) NEGATIVE (NEGATIVE) 11/06/21 11/06/21 11/06/21 Range/Units 08:30 11:34 14:05 WBC (4.0-10.5) K/mm3 RBC (4.1-5.4) M/mm3 Hgb (12.0-16.0) gm/dl Hct (35-47) % MCV (78-100) fl MCH (26-32) pg MCHC (32-36) g/dl RDW (11.5-14.0) % Plt Count (150-450) K/mm3 MPV (7.5-11.0) fl Gran % (36.0-66.0) % Eos # (Auto) (0-0.5) Absolute Lymphs (auto) (1.0-4.6) Absolute Monos (auto) (0.0-1.3) Lymphocytes % (24.0-44.0) % Monocytes % (0.0-12.0) % Eosinophils % (0.00-5.0) % Basophils % (0.0-0.4) % Absolute Granulocytes (1.4-6.9) Basophils # (0-0.4) D-Dimer (215-500) ng/mL Sodium (137-145) mmol/L Potassium (3.5-5.1) mmol/L Chloride (98-107) mmol/L Carbon Dioxide (22-30) mmol/L Anion Gap (5-15) MEQ/L BUN (7-17) mg/dL Creatinine (0.52-1.04) mg/dL Estimated GFR ML/MIN Glucose (74-106) mg/dL Calcium (8.4-10.2) mg/dL Total Bilirubin (0.2-1.3) mg/dL AST (14-36) U/L ALT (0-35) U/L Alkaline Phosphatase (38-126) U/L Troponin I < 0.012 < 0.012 < 0.012 (0.000-0.034) ng/mL NT-Pro-B Natriuret Pep (0-450) pg/mL Serum Total Protein (6.3-8.2) g/dL Albumin (3.5-5.0) g/dL Influenza Type A Ag (NEGATIVE) Influenza Type B Ag (NEGATIVE) RSV (PCR) (Negative) SARS-CoV-2 (PCR) (NEGATIVE) - Radiology Impressions Radiology Exams & Impressions: Radiology Procedures Category Date Time Status CHEST 1 VIEW (PORTABLE) Stat Exams 11/06/21 02:56 Completed CHEST WITH CONTRAST [CT] Stat Exams 11/06/21 07:08 Completed - Other Procedures and Tests Respiratory Therapy 11/06/21 03:09 Respiratory Therapy Assessment DAILY 11/06/21 08:11 Oxygen Nasal Cannula 2 lpm Assessment/Plan (1) Asthma exacerbation Current Visit: Yes Status: Acute Qualifiers: Asthma severity: moderate Assessment & Plan: O2 sat 84% on 2L,increased O2 to 3 L Code(s): J45.901 - UNSPECIFIED ASTHMA WITH (ACUTE) EXACERBATION (2) Dyspnea Current Visit: Yes Status: Acute Assessment & Plan: CT Chest neg fot PE, Troponin series not elevated. Code(s): R06.00 - DYSPNEA, UNSPECIFIED (3) Thyroiditis Current Visit: Yes Status: Chronic Assessment & Plan: is robina for thyroidectomy per patient Code(s): E06.9 - THYROIDITIS, UNSPECIFIED Hospital Summary - Vitals & Intake/Output Vital Signs: Vital Signs Temperature 97.1 F 11/06/21 16:00 Pulse Rate 112 H 11/06/21 16:00 Respiratory Rate 31 H 11/06/21 16:00 Blood Pressure 155/72 11/06/21 16:00 O2 Sat by Pulse Oximetry 90 L 11/06/21 16:00 Intake & Output: Intake & Output 11/04/21 11/05/21 11/06/21 11/07/21 11:59 11:59 11:59 11:59 Intake Total 0 240 Balance 0 240 Weight 127 kg - Lab Result Diagrams: 11/06/21 02:33 11/06/21 02:33 Lab Results-Last 24 Hrs: Lab Results-Last 24 Hours 11/06/21 11/06/21 11/06/21 Range/Units 02:33 02:33 02:33 WBC 11.2 H (4.0-10.5) K/mm3 RBC 4.62 (4.1-5.4) M/mm3 Hgb 15.2 (12.0-16.0) gm/dl Hct 45.0 (35-47) % MCV 97.4 (78-100) fl MCH 32.9 H (26-32) pg MCHC 33.8 (32-36) g/dl RDW 13.9 (11.5-14.0) % Plt Count 237 (150-450) K/mm3 MPV 9.0 (7.5-11.0) fl Gran % 83.0 H (36.0-66.0) % Eos # (Auto) 0.33 (0-0.5) Absolute Lymphs (auto) 0.96 L (1.0-4.6) Absolute Monos (auto) 0.60 (0.0-1.3) Lymphocytes % 8.5 L (24.0-44.0) % Monocytes % 5.3 (0.0-12.0) % Eosinophils % 2.9 (0.00-5.0) % Basophils % 0.3 (0.0-0.4) % Absolute Granulocytes 9.32 H (1.4-6.9) Basophils # 0.03 (0-0.4) D-Dimer 453 (215-500) ng/mL Sodium 136 L (137-145) mmol/L Potassium 4.0 (3.5-5.1) mmol/L Chloride 100 (98-107) mmol/L Carbon Dioxide 29 (22-30) mmol/L Anion Gap 11.4 (5-15) MEQ/L BUN 4 L (7-17) mg/dL Creatinine 0.53 (0.52-1.04) mg/dL Estimated GFR > 60.0 ML/MIN Glucose 123 H (74-106) mg/dL Calcium 8.8 (8.4-10.2) mg/dL Total Bilirubin 0.50 (0.2-1.3) mg/dL AST 43 H (14-36) U/L ALT 31 (0-35) U/L Alkaline Phosphatase 66 (38-126) U/L Troponin I (0.000-0.034) ng/mL NT-Pro-B Natriuret Pep 39.2 (0-450) pg/mL Serum Total Protein 7.3 (6.3-8.2) g/dL Albumin 3.7 (3.5-5.0) g/dL Influenza Type A Ag (NEGATIVE) Influenza Type B Ag (NEGATIVE) RSV (PCR) (Negative) SARS-CoV-2 (PCR) (NEGATIVE) 11/06/21 11/06/21 11/06/21 Range/Units 02:33 05:39 05:58 WBC (4.0-10.5) K/mm3 RBC (4.1-5.4) M/mm3 Hgb (12.0-16.0) gm/dl Hct (35-47) % MCV (78-100) fl MCH (26-32) pg MCHC (32-36) g/dl RDW (11.5-14.0) % Plt Count (150-450) K/mm3 MPV (7.5-11.0) fl Gran % (36.0-66.0) % Eos # (Auto) (0-0.5) Absolute Lymphs (auto) (1.0-4.6) Absolute Monos (auto) (0.0-1.3) Lymphocytes % (24.0-44.0) % Monocytes % (0.0-12.0) % Eosinophils % (0.00-5.0) % Basophils % (0.0-0.4) % Absolute Granulocytes (1.4-6.9) Basophils # (0-0.4) D-Dimer (215-500) ng/mL Sodium (137-145) mmol/L Potassium (3.5-5.1) mmol/L Chloride (98-107) mmol/L Carbon Dioxide (22-30) mmol/L Anion Gap (5-15) MEQ/L BUN (7-17) mg/dL Creatinine (0.52-1.04) mg/dL Estimated GFR ML/MIN Glucose (74-106) mg/dL Calcium (8.4-10.2) mg/dL Total Bilirubin (0.2-1.3) mg/dL AST (14-36) U/L ALT (0-35) U/L Alkaline Phosphatase (38-126) U/L Troponin I < 0.012 < 0.012 (0.000-0.034) ng/mL NT-Pro-B Natriuret Pep (0-450) pg/mL Serum Total Protein (6.3-8.2) g/dL Albumin (3.5-5.0) g/dL Influenza Type A Ag NEGATIVE (NEGATIVE) Influenza Type B Ag NEGATIVE (NEGATIVE) RSV (PCR) NEGATIVE (Negative) SARS-CoV-2 (PCR) NEGATIVE (NEGATIVE) 11/06/21 11/06/21 11/06/21 Range/Units 08:30 11:34 14:05 WBC (4.0-10.5) K/mm3 RBC (4.1-5.4) M/mm3 Hgb (12.0-16.0) gm/dl Hct (35-47) % MCV (78-100) fl MCH (26-32) pg MCHC (32-36) g/dl RDW (11.5-14.0) % Plt Count (150-450) K/mm3 MPV (7.5-11.0) fl Gran % (36.0-66.0) % Eos # (Auto) (0-0.5) Absolute Lymphs (auto) (1.0-4.6) Absolute Monos (auto) (0.0-1.3) Lymphocytes % (24.0-44.0) % Monocytes % (0.0-12.0) % Eosinophils % (0.00-5.0) % Basophils % (0.0-0.4) % Absolute Granulocytes (1.4-6.9) Basophils # (0-0.4) D-Dimer (215-500) ng/mL Sodium (137-145) mmol/L Potassium (3.5-5.1) mmol/L Chloride (98-107) mmol/L Carbon Dioxide (22-30) mmol/L Anion Gap (5-15) MEQ/L BUN (7-17) mg/dL Creatinine (0.52-1.04) mg/dL Estimated GFR ML/MIN Glucose (74-106) mg/dL Calcium (8.4-10.2) mg/dL Total Bilirubin (0.2-1.3) mg/dL AST (14-36) U/L ALT (0-35) U/L Alkaline Phosphatase (38-126) U/L Troponin I < 0.012 < 0.012 < 0.012 (0.000-0.034) ng/mL NT-Pro-B Natriuret Pep (0-450) pg/mL Serum Total Protein (6.3-8.2) g/dL Albumin (3.5-5.0) g/dL Influenza Type A Ag (NEGATIVE) Influenza Type B Ag (NEGATIVE) RSV (PCR) (Negative) SARS-CoV-2 (PCR) (NEGATIVE) - Radiology Exams Ordered Rad Exams-Entire Visit: Radiology Procedures Category Date Time Status CHEST 1 VIEW (PORTABLE) Stat Exams 11/06/21 02:56 Completed CHEST WITH CONTRAST [CT] Stat Exams 11/06/21 07:08 Completed - Procedures and Test Procedures and Tests throughout Hospitalization: Therapy Orders & Screens 11/06/21 03:09 Respiratory Therapy Assessment DAILY Comment: 11/06/21 08:11 Oxygen Nasal Cannula 2 lpm Comment: Respiratory Therapy Consult ROUTINE Comment: Arrange outpatient home oxygen if meets criteria Reason For Exam: Evaluation and management 11/06/21 11:46 Oxygen NASAL CANNULA 2 lpm Comment: O2 SAT 88% ON RM AIR Diagnosis: shortness of breath 11/06/21 15:09 Qualify for Home Oxygen ROUTINE Comment: Diagnosis: shortness of breath - Discharge Disposition: Home, Self-Care Condition: Stable Prescriptions: No Action ALPRAZolam 1 MG [Xanax 1 mg] 1 mg PO BID Paroxetine HCl 20 mg [Paxil 20 MG] 20 mg PO DAILY Semaglutide [Ozempic] 1 ml SQ WEEKLY Ergocalciferol (Vitamin D2) [Vitamin D] 1 cap PO UD Carvedilol 3.125 mg [Coreg 3.125 MG] 3.125 mg PO BID Hydrocodone/Acetaminophen [[place] 5-325 Tablet] 1 each PO Q6H PRN MDD 4 PRN Reason: Pain Mecobalamin [B12 Active] 1,000 mcg PO DAILY Instructions: Oxygen Therapy, Adult (DC), Exacerbation of COPD (DC) Additional Instructions: VERY IMPORTANTMAKE SURE YOU CALL [facility] SOON YOU GET HOME FOR DELIVERY OF EQUIPMENT. DOTTIEER NUMBER IS . Follow up with: FELTON HUMMEL [Primary Care Provider] -
[2021-11-06 19:22] LABS: MAGNESIUM 1.8 mg/dL (1.6-2.3); TSH, 3RD Generation 0.215 mIU/L (0.47-4.68)
[2021-11-06 22:00] LABS: FREE TRIODOTHYRONINE 2.41 pg/mL (2.77-5.27)
[2021-11-06] MEDS ORDERED: ROCEPHIN 1 Gm-D5w 50 ml Bag** 1 G/50 ML IVPB IV SCH (22:00)
[2021-11-06] MEDS: DUONEB 0.5-3 MG/3 ml Neb IH PRN (22:35)
[2021-11-07] MEDS: DUONEB 0.5-3 MG/3 ml Neb IH PRN (02:37)
[2021-11-07] MEDS: Ativan 2 MG/1 ML VIAL IV PRN (03:13)
[2021-11-07 05:00] LABS: Hematocrit 44.7 % (35-47); Hemoglobin 14.9 gm/dl (12.0-16.0); Mean Cell Volume 98.5 fl (78-100); Mean Corpuscular Hemoglobin 32.8 pg (26-32); Mean Corpuscular Hgb Concent. 33.3 g/dl (32-36); Mean Platelet Volume 9.2 fl (7.5-11.0); Platelet Count 300 K/mm3 (150-450); Red Blood Count 4.54 M/mm3 (4.1-5.4); White Blood Count 14.9 K/mm3 (4.0-10.5)
[2021-11-07 05:30] LABS: ALBUMIN 3.7 g/dL (3.5-5.0); ALKALINE PHOSPHATASE 58 U/L (38-126); ANION GAP 12.2 MEQ/L (5-15); BLOOD UREA NITROGEN 4 mg/dL (7-17); CHLORIDE 101 mmol/L (98-107); Calcium 8.7 mg/dL (8.4-10.2); Carbon Dioxide 23 mmol/L (22-30); Creatinine 1 0.47 mg/dL (0.52-1.04); EST GLOMERULAR FILTRATION RATE > 60.0 ML/MIN; Glucose 262 mg/dL (74-106); Potassium 3.7 mmol/L (3.5-5.1); SGOT/AST 35 U/L (14-36); SODIUM 132 mmol/L (137-145); Total Protein 7.4 g/dL (6.3-8.2)
[2021-11-07 05:36] LABS: SGPT/ALT 38 U/L (0-35)
[2021-11-07] MEDS ORDERED: solu-MEDROL ONE (06:10)
[2021-11-07] MEDS: solu-MEDROL 80 MG, Sterile H2O 10 ml 2 ML IV SCH ×2 (06:27)
[2021-11-07] MEDS: DUONEB 0.5-3 MG/3 ml Neb IH SCH (07:00)
[2021-11-07 07:10] LABS: Lymphocytes 6 % (24-44); Monocyte 7 % (0.0-12.0); Neutrophils 87 % (36.0-66.0); Total Cells Counted 100
[2021-11-07 07:11] LABS: Platelet Estimate NORMAL (NORMAL)
[2021-11-07 08:26] VITALS: BP 135/70; PULSE 104; O2SAT 93
[2021-11-07] MEDS: XANAX 1 MG PO SCH (09:18)
[2021-11-07] MEDS: Coreg 3.125 MG PO SCH (09:18)
[2021-11-07] MEDS: Paxil 20 MG PO SCH (09:18)
[2021-11-07] MEDS ORDERED: Zithromax 500 MG/ 250 ML NaCl Premix 500 MG/250 ML IVPB IV SCH (10:00)
== END 2021-11-07 10:05 | disposition home or self-care (01) ==
LOC: ED 01:53 → MED SURG 08:09
PROVIDERS: ADMIT Family Medicine; ATTEND Family Medicine
DX: J45.901 Unspecified asthma with (acute) exacerbation (principal); R06.00 Dyspnea, unspecified; E06.9 Thyroiditis, unspecified; Z72.0 Tobacco use; Z79.899 Other long term (current) drug therapy; Z20.828 Contact with and (suspected) exposure to other viral communicable diseases
CPT/HCPCS: 0241U; 36000; 36415; 71045; 71260; 80053; 82607; 83735; 83880; 84439; 84443; 84481; 84484; 85025; 85379; 87040; 87070; 93005; 93041; 93268; 94640; 94760; 96365; 96367; 96374; 96375; 99285; G0378; J0456; J0696; J2060; J2405; J2930; A9270-GY

== ENCOUNTER 2024-08-13 13:35 | Emergency (ER) | payer BC ==
[2024-08-13 14:49] VITALS: RESP 18; TEMP 97.8
--- NOTE | 2024-08-13 14:52 | ERPHSYRPT ---
- History of Present Illness Time Seen by Provider: 08/13/24 14:52 Source: patient Exam Limitations: no limitations Patient Subjective Stated Complaint: PT states "I had a cyst removed from my lady parts and I was released from [facility] this morning and got a call from the Dr Armstrong and he advised that my lactic acid was 6 and to come back and I did not want to drive to [facility] so he said go to the nearest hospital and make sure that the number is accurate." Triage Nursing Assessment: Pt presented alert and oriented X 3, skin pwd. pt ambulates with an upright steady gait able to speak in clear full sentences pt resting comfortably on the bed. Physician History: Patient discharged from [facility] this morning after having a mass excised from her groin. After discharge she was called and told that she had a lactate of 6 on AM labs and was asked to return for repeat lactic acid. Patient told them she didn't want to return so she was [facility]. Patient feeling well without complaint. Timing/Duration: today Severity: mild Modifying Factors: Worsens With: nothing Associated Symptoms: denies symptoms Allergies/Adverse Reactions: fluoxetine HCl [From [facility]] Allergy (Intermediate, Verified 11/06/21 08:52) Hives hives Home Medications: ALPRAZolam 1 MG [Xanax 1 mg] 1 mg PO BID 08/14/14 [History] Paroxetine HCl 20 mg [Paxil 20 MG] 20 mg PO DAILY 11/02/17 [History] Carvedilol 3.125 mg [Coreg 3.125 MG] 3.125 mg PO BID 05/05/20 [History] Ergocalciferol (Vitamin D2) [Vitamin D] 1 cap PO UD 05/05/20 [History] Hydrocodone/Acetaminophen [[place] 5-325 Tablet] 1 each PO Q6H PRN MDD 4 05/05/20 [History] Semaglutide [Ozempic] 1 ml SQ WEEKLY 05/05/20 [History] Mecobalamin [B12 Active] 1,000 mcg PO DAILY 11/06/21 [History] Hx Tetanus, Diphtheria Vaccination/Date Given: No (unknown) Hx Influenza Vaccination/Date Given: No Hx Pneumococcal Vaccination/Date Given: No Immunizations Up to Date: No Travel Risk - International Travel Have you traveled outside of the country in past 3 weeks: No - Emerging Infectious Disease Are you exhibiting symptoms associated with any current EIDs: No - Review of Systems All Other Systems: Reviewed and Negative - Past Medical History Pertinent Past Medical History: Yes Neurological History: No Pertinent History ENT History: No Pertinent History Cardiac History: Hypertension Respiratory History: Asthma, CHF, Sleep Apnea Endocrine Medical History: Hypothyroidism Musculoskeletal History: Degenerative Disk Disease, Osteoarthritis GI Medical History: Hernia History: No Pertinent History Psycho-Social History: Anxiety, Depression, Panic Disorder Female Reproductive Disorders: Other Other Medical History: PCOS - Past Surgical History Past Surgical History: Yes Neuro Surgical History: No Pertinent History Cardiac: No Pertinent History Respiratory: No Pertinent History Gastrointestinal: Hemorrhoidectomy, Hernia Repair Genitourinary: No Pertinent History Musculoskeletal: Orthopedic Surgery Female Surgical History: Dilation & Curettage, Section Other Surgical History: D &C 2007, cervical cerclage 2009, right knee(four surgeries),hernia surgery x two. cyst removed from groin Significant Family History: no pertinent family hx - Female History Hx Last Menstrual Period: none anymore Hx Now: No - Social History Smoking Status: Current every day smoker How long have you smoked: 20 years Exposure to second hand smoke: No Drug Use: none Patient Lives Alone: No - Social Determinants of Health Will the patient participate in the screening: Declined to provide - Nursing Vital Signs Nursing Vital Signs: Initial Vital Signs Temperature 97.8 F 08/13/24 14:44 Pulse Rate 109 H 08/13/24 14:44 Respiratory Rate 18 08/13/24 14:44 Blood Pressure 186/92 08/13/24 14:44 O2 Sat by Pulse Oximetry 96 08/13/24 14:44 Pain Scale Pain Intensity 0 - Physical Exam General Appearance: no apparent distress Eye Exam: eyes nml inspection Ears, Nose, Throat Exam: normal ENT inspection Neck Exam: normal inspection, supple, full range of motion Respiratory Exam: airway intact, No respiratory distress Neurologic Exam: alert, oriented x 3, cooperative Skin Exam: normal color SpO2 Interpretation: normal SpO2: 96 O2 Delivery: Room Air - Course Nursing assessment & vital signs reviewed: Yes Ordered Tests: Active Orders 24 hr Category Date Time Status Lactic Acid Stat Lab 08/13/24 14:51 Completed Lab/Rad Data: Laboratory Results 08/13/24 Range/Units 14:51 Lactic Acid 2.7 H (0.4-2.0) - Progress Progress: unchanged Progress Note: Repeat lactic 2.7, no need for further intervention. Patient will follow up as scheduled with surgeon. Counseled pt/family regarding: lab results Medical Desision Making - Diagnostic Testing Diagnostic test were ordered, analyzed, and reviewed by me: Yes Radiological Interpretation: Interpreted by me - Risk of complications Low Risk: Low risk of morbidity from additional dx testing or treatment - Departure Departure Disposition: Home Clinical Impression: Abnormal laboratory test, Elevated lactic acid level Condition: Good Critical Care Time: No Referrals: FELTON HUMMEL [Primary Care Provider] - Follow up/PCP as directed Instructions: Dehydration, Adult (DC)
[2024-08-13 16:58] VITALS: O2SAT 96
[2024-08-13 17:02] VITALS: BP 165/108; PULSE 68
== END 2024-08-13 17:17 | disposition home or self-care (01) ==
LOC: ED 13:35
DX: R74.02 Elevation of levels of lactic acid dehydrogenase [LDH] (principal); Z98.890 Other specified postprocedural states
CPT/HCPCS: 83605; 99282; 99283